=== PATIENT | female | born 1960 | race African-American/Black ===

== ENCOUNTER 2017-03-04 21:05 | Inpatient (IN) | payer OTHER ==
[~2017-03-04] VITALS: Ht 162.6 cm; Wt 56.2 kg
[2017-03-04] MEDS ORDERED: LEVOFLOXACIN 750MG/D5W (PMX) 150 ML IVPB STA (23:06)
[2017-03-04] MEDS ORDERED: SODIUM CHLORIDE 0.9% 1L BAG IV* STA (23:06)
[2017-03-04] MEDS ORDERED: FURO40TA4 PO (23:32)
[2017-03-04] MEDS ORDERED: HYDR-902 PO (23:32)
[2017-03-04] MEDS ORDERED: FAMO20TA18 PO (23:32)
[2017-03-04] MEDS ORDERED: RIVA20TA PO (23:32)
[2017-03-04] MEDS ORDERED: MAGN400T27 PO (23:32)
[2017-03-04] MEDS ORDERED: ONDA4TAB95 PO (23:32)
[2017-03-04] MEDS ORDERED: SODI15OR8 PO (23:32)
[2017-03-04] MEDS ORDERED: DOCU-159 PO (23:32)
[2017-03-04] MEDS ORDERED: HYD25 PO (23:32)
[2017-03-04] MEDS ORDERED: MEGE400O PO (23:32)
[2017-03-04] MEDS ORDERED: DRON2.5C PO (23:32)
[2017-03-04] MEDS ORDERED: SENN-53 PO (23:32)
[2017-03-05 00:11] LABS: ADD UMIC YES; UR BLOOD (Dip) 3+ (NEGATIVE); UR CLARITY CLEAR (CLEAR); UR COLOR BROWN (YELLOW); UR GLUCOSE (Dip) NEGATIVE (NEGATIVE); UR KETONES (Dip) 15 (NEGATIVE); UR LEUKOCYTE ESTERASE (Dip) 3+ (NEGATIVE); UR NITRITE (Dip) NEGATIVE (NEGATIVE); UR TOTAL PROTEIN (Dip) 4+ (NEGATIVE); UR UROBILINOGEN (Dip) 0.2 E.U./dL (0.1-1.0)
[2017-03-05 00:14] LABS: UR BILIRUBIN (Dip) NEGATIVE (NEGATIVE)
[2017-03-05 00:24] LABS: ADD SCAN DIFF NO
[2017-03-05 00:27] LABS: UR BACTERIA MANY; UR MUCUS MODERATE; UR SQUAMOUS EPITHELIAL CELL MODERATE; URINE RBCS >50 /HPF (0)
[2017-03-05 00:33] LABS: ABNORMAL IP MESSAGE 1; BASOPHILS % 0.2 % (0.0-2.0); EOSINOPHILS # 0.1 10^3/ul (0.0-0.5); HEMATOCRIT 32.8 % (37.0-47.0); HEMOGLOBIN 10.5 g/dl (12.0-16.0); LYMPHOCYTES # 0.3 10^3/ul (0.8-2.9); LYMPHOCYTES % 5.6 % (15.0-51.0); MEAN CORPUSCULAR HEMOGLOBIN 26.9 pg (29.0-33.0); MEAN CORPUSCULAR VOLUME 84.1 fl (82.0-101.0); MEAN PLATELET VOLUME 9.3 fl (7.4-10.4); MONOCYTE # 0.2 10^3/ul (0.3-0.9); MONOCYTES % 3.7 % (0.0-11.0); NEUTROPHIL # 5.2 10^3/ul (1.6-7.5); NEUTROPHILS % 88.7 % (39.0-77.0); PLATELET COUNT 307 10^3/UL (140-415); RED CELL DISTRIBUTION WIDTH 14.2 % (11.5-14.5); WHITE BLOOD COUNT 5.9 10^3/ul (4.8-10.8)
[2017-03-05 00:48] LABS: INR 0.91; PROTIME 12.2 Sec (12.2-14.2)
[2017-03-05 00:49] LABS: PARTIAL THROMBOPLASTIN TIME 35.4 Sec (25.0-35.0)
[2017-03-05 00:55] LABS: ALANINE AMINOTRANSFERASE 27 IU/L (13-69); ALBUMIN 4.4 g/dl (3.3-4.9); ALBUMIN/GLOBULIN RATIO 1.25; ALKALINE PHOSPHATASE 86 IU/L (42-121); ANION GAP 16 (8-16); ASPARTATE AMINO TRANSFERASE 22 IU/L (15-46); BILIRUBIN,INDIRECT 0.1 mg/dl (0-1.1); BILIRUBIN,TOTAL 0.1 mg/dl (0.2-1.3); BLOOD UREA NITROGEN 29 mg/dl (7-20); CALCIUM 9.7 mg/dl (8.4-10.2); CARBON DIOXIDE 23 mmol/L (21-31); CHLORIDE 98 mmol/L (97-110); CREATININE 1.24 mg/dl (0.44-1.00); GLUCOSE 106 mg/dl (70-220); POTASSIUM 3.7 mmol/L (3.5-5.1); SODIUM 133 mmol/L (135-144); TOTAL PROTEIN 7.9 g/dl (6.1-8.1)
[2017-03-05 01:58] LABS: TROPONIN-I < 0.012 ng/ml (0.00-0.12)
--- NOTE | 2017-03-05 03:04 | RADRPT ---
PROCEDURE: XR Chest. CLINICAL INDICATION: Sepsis. TECHNIQUE: Single frontal chest x-ray. COMPARISON: None. FINDINGS: The cardiomediastinal silhouette is unremarkable. There is no congestive heart failure.. No focal i nfiltrate is seen. There is no pleural effusion. There is no pneumothorax. The osseous structures are unremarkable. IMPRESSION: 1. No active disease. RPTAT: HMVK .Kris Rivas MD, Date Time Electronically viewed and signed by .Kris Rivas MD, on 03/05/2017 03:03 .K/
[2017-03-05 04:00] VITALS: TEMP 98.2
[2017-03-05] MEDS ORDERED: ACETAMINOPHEN 325 MG TAB PO PRN (04:00)
[2017-03-05] MEDS ORDERED: ONDANSETRON 4 MG INJ IV PRN ×2 (04:00→06:30)
[2017-03-05 04:41] VITALS: BP 97/58; RESP 20
--- NOTE | 2017-03-05 06:07 | ERA ---
ER Documentation Chief Complaint Date/Time DATE: 03/05/17 TIME: 06:03 Chief Complaint bilateral flank pain , hypotension- pt taking chemo- ca of kidney HPI 56-year-old female with a history of cervical cancer with bilateral ureteral obstruction requiring bilateral nephrostomy tubes presenting to the ER with right flank pain and hypotension at her care facility. She states she has noticed a foul odor to her urine out of her right nephrostomy. She denies any fevers or chills. She has chronic abdominal pain that is unchanged. Per her caregiver, she was hypotensive with systolic in the 60s prior to arrival. She denies any vaginal bleeding. She has no other acute symptoms. ROS All systems reviewed and are negative except as per history of present illness. Medications Home Meds Reported Medications Ondansetron Hcl* (Ondansetron Hcl*) 4 Mg Tablet, 4 MG PO Q8 for NAUSEA AND/OR VOMITING, TAB 03/04/17 Dronabinol* (Dronabinol*) 2.5 Mg Capsule, 2.5 MG PO BID, CAP 03/04/17 Hydrocodone/Acetaminophen ([place] 10-325 Tablet) 1 Each Tablet, 1 EACH PO, TAB 03/04/17 Sodium Polystyrene Sulfonate* (Kayexalate*) 15 Gm/60 Ml Susp, 30 GM PO, ML 03/04/17 Sennosides* (Senna Lax*) 8.6 Mg Tablet, 1 TAB PO QHS for CONSTIPATION, TAB 03/04/17 Rivaroxaban* (Xarelto*) 20 Mg Tablet, 20 MG PO WITH DINNER, TAB 03/04/17 Megestrol Acetate* (Megace*) 400 Mg/10 Ml Oral.susp, 800 MG PO DAILY, ML 03/04/17 Magnesium Oxide* (Mag-Oxide*) 400 Mg Tablet, 400 MG PO TID, TAB 03/04/17 Hydrochlorothiazide* (Hydrochlorothiazide*) 25 Mg Tab, 25 MG PO BID, #60 TAB 03/04/17 Furosemide* (Furosemide*) 40 Mg Tablet, 40 MG PO BID, TAB 03/04/17 Famotidine* (Famotidine*) 20 Mg Tablet, 20 MG PO BID, #60 TAB 03/04/17 Docusate Sodium* (Docusate Sodium*) 100 Mg Capsule, 100 MG PO BID, #60 CAP 03/04/17 Allergies Allergies: Coded Allergies: No Known Allergy (Unverified , 03/04/17) PMhx/Soc History of Surgery: Yes (nephrostomy placed 2015) Anesthesia Reaction: No Hx Neurological Disorder: Yes (general weakness) Hx Respiratory Disorders: No Hx Cardiac Disorders: Yes (hypotension) Hx Psychiatric Problems: No Hx Miscellaneous Medical Probl: Yes (received chemo (Jun-Oct) then was in remission and then it returned) Hx Alcohol Use: Yes (former drinker and was a little amount) Hx Substance Use: Yes (cocaine; many years ago) Hx Tobacco Use: Yes Smoking Status: Former smoker FmHx Family History: No diabetes Physical Exam Vitals Vital Signs Date Time Temp Pulse Resp B/P Pulse Ox O2 Delivery O2 Flow Rate FiO2 03/05/17 02:00 98.0 117 20 104/77 98 Room Air 03/05/17 00:00 98.0 124 20 102/77 100 03/04/17 23:00 98.5 115 20 119/91 97 Room Air 03/04/17 21:16 98.4 128 20 91/66 100 Physical Exam Const: Chronically ill-appearing, cachectic, no distress, nontoxic Head: Atraumatic Eyes: Normal Conjunctiva ENT: Normal External Ears, Nose and Mouth. Neck: Full range of motion. No JVD. No meningismus. Resp: Clear to auscultation bilaterally Cardio: Tachycardic with regular rhythm, no murmurs Abd: Soft, non tender, non distended. No palpable masses per normal bowel sounds Skin: No petechiae or rashes Back: Right CVA tenderness with nephrostomy tube in place draining cloudy urine. Left CVA nontender Ext: No cyanosis, or edema Neur: Awake and alert Psych: Normal Mood and Affect Result Diagram: 03/04/17 2350 03/04/17 2350 Results 24 hrs Laboratory Tests Test 03/04/17 23:40 03/04/17 23:50 Urine Color BROWN Urine Clarity CLEAR Urine pH 6.0 Urine Specific [place] 1.025 Urine Ketones 15 Urine Nitrite NEGATIVE Urine Bilirubin NEGATIVE Urine Urobilinogen 0.2 E.U./dL Urine Leukocyte Esterase 3+ Urine Microscopic RBC >50/HPF Urine Microscopic WBC >200/HPF Urine Squamous Epithelial Cells MODERATE Urine Bacteria MANY Urine Mucus MODERATE Urine Hemoglobin 3+ Urine Glucose NEGATIVE% Urine Total Protein 4+ White Blood Count 5.910^3/ul Red Blood Count 3.9010^6/ul Hemoglobin 10.5g/dl Hematocrit 32.8% Mean Corpuscular Volume 84.1fl Mean Corpuscular Hemoglobin 26.9pg Mean Corpuscular Hemoglobin Concent 32.0g/dl Red Cell Distribution Width 14.2% Platelet Count 86978^3/UL Mean Platelet Volume 9.3fl Neutrophils % 88.7% Lymphocytes % 5.6% Monocytes % 3.7% Eosinophils % 1.0% Basophils % 0.2% Nucleated Red Blood Cells % 0.0/100WBC Neutrophils # 5.210^3/ul Lymphocytes # 0.310^3/ul Monocytes # 0.210^3/ul Eosinophils # 0.110^3/ul Basophils # 0.010^3/ul Nucleated Red Blood Cells # 0.010^3/ul Prothrombin Time 12.2Sec Prothrombin Time Ratio 1.0 INR International Normalized Ratio 0.91 Activated Partial Thromboplast Time 35.4Sec Sodium Level 133mmol/L Potassium Level 3.7mmol/L Chloride Level 98mmol/L Carbon Dioxide Level 23mmol/L Anion Gap 16 Blood Urea Nitrogen 29mg/dl Creatinine 1.24mg/dl Glucose Level 106mg/dl Lactic Acid Level 1.6mmol/L Calcium Level 9.7mg/dl Total Bilirubin 0.1mg/dl Direct Bilirubin 0.00mg/dl Indirect Bilirubin 0.1mg/dl Aspartate Amino Transf (AST/SGOT) 22IU/L Alanine Aminotransferase (ALT/SGPT) 27IU/L Alkaline Phosphatase 86IU/L Troponin I < 0.012ng/ml Total Protein 7.9g/dl Albumin 4.4g/dl Globulin 3.50g/dl Albumin/Globulin Ratio 1.25 Current Medications Medications (Trade) Dose Ordered Sig/Eulalio Route PRN Reason Start Time Stop Time Status Last Admin Dose Admin Sodium Chloride 1670 ml 1,670 ml BOLUS OVER 2 HOURS STAT IV* 03/04/17 23:06 03/04/17 23:09 DC 03/04/17 23:53 Levofloxacin/ Dextrose (Levaquin 750 Mg/ D5W 150 ml (Pmx)) 150 ml @ 100 mls/hr ONCE STAT IVPB 03/04/17 23:06 03/05/17 00:35 DC 03/04/17 23:49 Procedures/MDM EKG: Rate/Rhythm: Sinus tachycardia at 127 beats per QRS, ST, T-waves: No changes consistent w/ acute ischemia Impression: No evidence of ischemia or arrhythmia Labs: CBC shows mild anemia, BMP shows mild hyponatremia With elevated BUN and creatinine Urinalysis from right nephrostomy shows evidence of infection Lactate within normal limits Chest x-ray shows no acute abnormalities MDM: Patient is presenting with symptoms of pyelonephritis associated with her right nephrostomy tube. She is tachycardic and borderline hypotensive. 30 cc/kg of IV fluids were given with improvement of her vital signs. Her lactate was within normal limits. Broad-spectrum antibiotics were started. I suspect she will need exchange of her right nephrostomy tube given her acute infection. Cultures are pending. Patient will be admitted to the medicine service for further workup and management. Critical Care Time: 35 minutes Treatments/Evaluations: Close monitoring and treatment of unstable vital signs, cardiorespiratory, and neurologic status, while maintaining tight balance of fluid, respiratory, and cardiac interventions. This time includes discussing the case with the patient and the patients family. This time does not include all procedures stated elsewhere in this record. This time also includes reviewing old records, labs and radiological studies. This time includes examining and re-examining the patient. Additionally, this time also includes arranging care with admitting and consulting physicians. Accepting Care Team: Current data and ongoing care discussed. Time: Time of admission Primary Provider: Wai Consulting: none Outstanding Data: Cultures Departure Diagnosis: Primary Impression: Pyelonephritis Additional Impression: Sepsis Qualified Code: A41.9 - Sepsis, due to unspecified organism Condition: NAVI Leo MD Mar 05, 2017 06:07
[2017-03-05 06:17] VITALS: Ht 162.6 cm; Wt 56.2 kg
[2017-03-05] MEDS: SOD CHLORIDE 0.9% 1,000 ML IV SCH ×2 (06:27→16:50)
[2017-03-05] MEDS ORDERED: morphine 2 MG INJ IV PRN (06:30)
[2017-03-05] MEDS ORDERED: NACL 0.9% 3 ML SYG IV SCH (06:30)
--- NOTE | 2017-03-05 06:49 | HP ---
Date/Time of Note Date/Time of Note DATE: 03/05/17 TIME: 06:26 Assessment/Plan VTE Prophylaxis VTE Prophylaxis Intervention: SCD's Lines/Catheters IV [facility] Type (from [facility]): Peripheral IV Urinary Cath still in place: No Assessment/Plan Chief Complaint/Hosp Course This is a 56-year-old female being admitted to the [facility] floor for: #1 sepsis: Tachycardia and elevated respiratory rate along with urinary tract infection. Patient is currently afebrile. She was started on Levaquin in the ED will continue IV Levaquin at this time. Will await urine cultures and sensitivities and adjust antibiotics accordingly. Will provide IV fluid hydration and monitor for any recurrent hypotension. Lactate is within normal values. Recheck CBC and BMP. #2 right flank pain: Possible pyelonephritis, patient also has foul order urine leaking from around the nephrostomy site. On IV Levaquin at this time. Await urine culture sensitivities. Will get a renal ultrasound, and likely will consult IR for nephrostomy tube replacement. She is currently on Xarelto as well will discuss with IR whether this needs to be held prior to procedure. #3 hypertension: We will hold home hydrochlorothiazide at this time secondary to patient's low blood pressure #4 cervical cancer: Being followed by heme/onc as an outpatient. Patient had her most recent chemotherapy last week. We will continue home medications for poor appetite and pain. #5 Questionable clotting disorder: Patient at this time does not recall any clotting issues that she may have. She is on Xarelto. Will continue the current medication and follow-up with any family members or obtain records regarding this. #6 DVT and GI prophylaxis: scds, Patient currently on Xarelto, Protonix Further treatment strategy will be implemented as per the clinical course Problems: HPI/ROS Admit Date/Time Admit Date/Time Mar 05, 2017 at 03:37 Hx of Present Illness Chief complaint: Right flank pain, hypertension 56-year-old female with a history of cervical cancer with bilateral ureteral obstruction requiring bilateral nephrostomy tubes presenting to the ER with right flank pain and hypotension at her care facility. She states she has noticed a foul odor to her urine out of her right nephrostomy. She denies any fevers or chills. She has chronic abdominal pain that is unchanged. Per her caregiver, she was hypotensive with systolic in the 60s prior to arrival. She denies any vaginal bleeding. She has no other acute symptoms. In the emergency department patient was given a fluid challenge and subsequently her blood pressure responded and currently is in within normal values. Allergies: NKDA Medications: See Nov Const: As per HPI Eyes : No pain discharge or redness or change in visual acuity ENT: No pain, sore throat, congestion, congestion, dysphagia or discharge Respiratory: No shortness of breath, cough, sputum, wheezing, or pleuritic pain Cardiovascular: No chest pain, palpitation, PND, or edema GI : As per HPI Genitourinary: As per HPI Musculoskeletal: No joint pain, back pain, neck pain, restricted range of motion in neck or joints Skin: No rash, bruising or hives Neuro: No headache, dizziness, syncope, seizure, focal weakness Endocrine: No polyuria, polydipsia, temperature intolerance Psych: No hallucination, depression, anxiety or suicidal ideation PMH/Family/Social Past Medical History Cervical cancer status post chemotherapy last , hypertension, clotting disorder? Past Surgical History Bilateral nephrostomy tubes Family History Significant Family History: cancer (Mom pancreatic cancer) Social History Patient reports that she has a previous history of cigarette use and alcohol use as well as cocaine use however she has not used any drugs within the past year Smoking Status: Former smoker Exam/Review of Systems Vital Signs Vitals Vital Signs Date Time Temp Pulse Resp B/P Pulse Ox O2 Delivery O2 Flow Rate FiO2 03/05/17 04:41 98.0 97 20 97/58 100 03/05/17 04:00 Room Air Intake and Output 03/04/17 03/04/17 03/05/17 15:00 23:00 07:00 Intake Total 150 ml Output Total 200 ml Balance -50 ml Exam Exam General: This is a pleasant 52-year-old female frail-appearing in no acute distress HEENT: Atraumatic, normocephalic. The pupils are equal, round and reactive. Extraocular motor are intact, poor dentition Neck: Supple with full range of motion. No rigidity or meningismus Chest: Nontender Lungs: Clear to auscultation bilaterally no crackles rales or wheezing Heart: Normal S1-S2, Regular rhythm and rate. No apparent appreciable murmur Abdomen: Soft, mild tenderness to palpation in the suprapubic area (chronic), left nephrostomy tube in place and intact no leakage apparent, right nephrostomy tube in place however there is visible fluid leakage possible signs of underlying infection, right CVA tenderness to palpation Extremities: Normal to inspection, no edema no cyanosis Neurologic: Normal mental status, speech normal, cranial nerves II through XII are intact, motor and sensory are intact, no focal weakness Additional Comments PROCEDURE: XR Chest. CLINICAL INDICATION: Sepsis. TECHNIQUE: Single frontal chest x-ray. COMPARISON: None. FINDINGS: The cardiomediastinal silhouette is unremarkable. There is no congestive heart failure.. No focal infiltrate is seen. There is no pleural effusion. There is no pneumothorax. The osseous structures are unremarkable. IMPRESSION: 1. No active disease. RPTAT: HMVK .Kris Rivas MD, Date Time Electronically viewed and signed by .Kris Rivas MD, on 03/05/2017 03:03 EKG: Rate/Rhythm: Sinus tachycardia at 127 beats per QRS, ST, T-waves: No changes consistent w/ acute ischemia As per ED physician documentation Labs Result Diagram: 03/04/17 23503/04/17 235 NORM REINA Mar 05, 2017 06:39
[2017-03-05] MEDS ORDERED: PANTOPRAZOLE 40 MG INJ IV SCH (07:30)
[2017-03-05 08:04] VITALS: BP 97/60; RESP 20
[2017-03-05] MEDS: MAGNESIUM OXIDE 400 MG TAB PO SCH ×3 (08:44→20:41)
[2017-03-05] MEDS: DOCUSATE SODIUM 100 MG CAP PO SCH ×2 (08:46→20:40)
[2017-03-05] MEDS: DRONABINOL 2.5 MG CAP PO SCH ×2 (08:47→20:43)
[2017-03-05] MEDS: MEGESTROL (40 MG/ML) 10ML CUP PO SCH (08:47)
--- NOTE | 2017-03-05 09:49 | PN ---
Date/Time of Note Date/Time of Note DATE: 03/05/17 TIME: 09:48 Assessment/Plan VTE Prophylaxis VTE Prophylaxis Intervention: other (full ATC) Lines/Catheters IV Catheter Type (from Nrsg): Peripheral IV Urinary Cath still in place: No Assessment/Plan Assessment/Plan 56 yo F with pmhx cervical ca cb bl hydro warranting nephrostomy tube placement admitted for R flank pain, hypotension concerning for pyelonephritis and possible nephrostomy tube leak PLAN cont levoflox pending urine culture results await renal US result. If nephrostomy tube shows leak, will talk to IR inc pain meds cont home meds Subjective 24 Hr Interval Summary Free Text/Dictation pt reports pain control not sufficient at this time Exam/Review of Systems Vital Signs Vitals Vital Signs Date Time Temp Pulse Resp B/P Pulse Ox O2 Delivery O2 Flow Rate FiO2 03/05/17 08:04 98.1 91 20 97/60 98 03/05/17 04:00 Room Air Intake and Output 03/04/17 03/04/17 03/05/17 15:00 23:00 07:00 Intake Total 150 ml Output Total 200 ml Balance -50 ml Exam nad, laying in bed no mrg lungs clear abd soft nephrostomy tubes in place no le edema Results Result Diagram: 03/04/17 2350 03/04/17 2350 Results 24 hrs Laboratory Tests Test 03/04/17 23:40 03/04/17 23:50 03/05/17 04:50 03/05/17 06:53 Urine Color BROWN Urine Clarity CLEAR Urine pH 6.0 Urine Specific [place] 1.025 Urine Ketones 15 Urine Nitrite NEGATIVE Urine Bilirubin NEGATIVE Urine Urobilinogen 0.2 E.U./dL Urine Leukocyte Esterase 3+ H Urine Microscopic RBC >50 Urine Microscopic WBC >200 Urine Squamous Epithelial Cells MODERATE Urine Bacteria MANY Urine Mucus MODERATE Urine Hemoglobin 3+ H Urine Glucose NEGATIVE Urine Total Protein 4+ H White Blood Count 5.9 Red Blood Count 3.90 L Hemoglobin 10.5 L Hematocrit 32.8 L Mean Corpuscular Volume 84.1 Mean Corpuscular Hemoglobin 26.9 L Mean Corpuscular Hemoglobin Concent 32.0 Red Cell Distribution Width 14.2 Platelet Count 307 Mean Platelet Volume 9.3 Neutrophils % 88.7 H Lymphocytes % 5.6 L Monocytes % 3.7 Eosinophils % 1.0 Basophils % 0.2 Nucleated Red Blood Cells % 0.0 Neutrophils # 5.2 Lymphocytes # 0.3 L Monocytes # 0.2 L Eosinophils # 0.1 Basophils # 0.0 Nucleated Red Blood Cells # 0.0 Prothrombin Time 12.2 Prothrombin Time Ratio 1.0 INR International Normalized Ratio 0.91 Activated Partial Thromboplast Time 35.4 H Sodium Level 133 L Potassium Level 3.7 Chloride Level 98 Carbon Dioxide Level 23 Anion Gap 16 Blood Urea Nitrogen 29 H Creatinine 1.24 H Glucose Level 106 Lactic Acid Level 1.6 0.9 1.0 Calcium Level 9.7 Total Bilirubin 0.1 L Direct Bilirubin 0.00 Indirect Bilirubin 0.1 Aspartate Amino Transf (AST/SGOT) 22 Alanine Aminotransferase (ALT/SGPT) 27 Alkaline Phosphatase 86 Troponin I < 0.012 Total Protein 7.9 Albumin 4.4 Globulin 3.50 H Albumin/Globulin Ratio 1.25 Medications Medications Current Medications Sodium Chloride (NS) 1,000 ml @ 75 mls/hr [id number] IV ; Start 03/05/17 at 06:27 Ondansetron HCl (Zofran Inj) 4 mg Q6H PRN IV NAUSEA AND/OR VOMITING; Start at 06:30 Morphine Sulfate (morphine) 2 mg Q4H PRN IV SEVERE PAIN LEVEL 7-10 Last administered on 03/05/17 08:40; Admin Dose 2 MG; Start 03/05/17 at 06:30 Pantoprazole 40 mg 40 mg DAILY@06 IV Last administered on 03/05/17 08:43; Admin Dose 40 MG; Start 03/05/17 at 07:30 Levofloxacin/ Dextrose (Levaquin 750 Mg/ D5W 150 ml (Pmx)) 150 ml @ 100 mls/hr Q24H IVPB ; Start 03/06/17 at 00:00 Docusate Sodium (Colace) 100 mg BID PO ; Start 03/05/17 at 09:00 Dronabinol (Marinol) 2.5 mg BID PO ; Start 03/05/17 at 09:00 Magnesium Oxide (Mag-Ox 400) 400 mg TID PO Last administered on 03/05/17 08:44 ; Admin Dose 400 MG; Start 03/05/17 at 09:00 Megestrol Acetate (Megace Susp) 800 mg DAILY PO ; Start 6/15/17 at 09:00 Ondansetron HCl (Zofran Tab) 4 mg Q8 PO ; Start 03/05/17 at 14:00 Senna (Senokot) 1 tab QHS PO ; Start 03/05/17 at 21:00 RADHA THOMPSON MD Mar 05, 2017 09:49
--- NOTE | 2017-03-05 12:28 | RADRPT ---
PROCEDURE: Renal US. CLINICAL INDICATION: Bilateral nephrostomy tubes with the right nephrostomy tube maintained. TECHNIQUE: Multiple sonographic images of the kidneys and urinary bladder were obtained. The imag es were reviewed on a PACS workstation. COMPARISON: No prior studies are available for comparison. FINDINGS: The right kidney measures 10.2 cm. The left kidney measures 10.2 cm. There is no renal mass. There is mild bilateral hydronephrosis. Bilateral nephrostomy tubes are visualized. There is no renal calculus. Renal parenchymal thickness is normal bilaterally. Echogenicity is normal bilaterally. The perirenal regions are normal with no fluid collection or mass. The urinary bladder is empty. IMPRESSION: 1. Mild bilateral hydronephrosis and bilateral nephrostomy tubes noted. 2. Empty urinary bladder. 3. Otherwise unremarkable study. RPTAT: QQ .Carlos Rogers MD, Date Time Electronically viewed and signed by .Carlos Rogers MD, on 03/05/2017 12:28 .R/
[2017-03-05] MEDS: morphine 4 MG/ML VIAL IV PRN ×3 (12:30→21:04)
[2017-03-05] MEDS: ONDANSETRON 4 MG TAB PO SCH ×2 (13:17→21:14)
[2017-03-05] MEDS: RIVAROXABAN 20 MG TABLET PO SCH (16:50)
[2017-03-05 20:12] VITALS: BP 119/72; RESP 18
[2017-03-05] MEDS: SENNA TAB PO SCH (20:41)
[2017-03-06] MEDS ORDERED: LEVOFLOXACIN 750MG/D5W (PMX) 150 ML IVPB SCH
[2017-03-06] MEDS: morphine 4 MG/ML VIAL IV PRN ×4 (02:49→21:21)
[2017-03-06] MEDS: SOD CHLORIDE 0.9% 1,000 ML IV SCH ×2 (04:51→18:07)
[2017-03-06 05:09] LABS: ADD SCAN DIFF NO
[2017-03-06] MEDS: LEVOFLOXACIN 750 MG TABLET PO SCH (05:22)
[2017-03-06] MEDS: ONDANSETRON 4 MG TAB PO SCH ×3 (05:22→21:17)
[2017-03-06 05:26] LABS: ABNORMAL IP MESSAGE 1; EOSINOPHILS # 0.1 10^3/ul (0.0-0.5); EOSINOPHILS % 2.5 % (0.0-7.0); HEMATOCRIT 25.3 % (37.0-47.0); LYMPHOCYTES # 0.3 10^3/ul (0.8-2.9); LYMPHOCYTES % 7.6 % (15.0-51.0); MEAN CORPUSCULAR HEMOGLOBIN 26.9 pg (29.0-33.0); MEAN CORPUSCULAR HGB CONC 31.6 g/dl (32.0-37.0); MEAN CORPUSCULAR VOLUME 85.2 fl (82.0-101.0); MEAN PLATELET VOLUME 9.7 fl (7.4-10.4); MONOCYTE # 0.2 10^3/ul (0.3-0.9); MONOCYTES % 5.9 % (0.0-11.0); NEUTROPHIL # 3.4 10^3/ul (1.6-7.5); NEUTROPHILS % 83.3 % (39.0-77.0); PLATELET COUNT 258 10^3/UL (140-415); RED BLOOD COUNT 2.97 10^6/ul (4.20-5.40); RED CELL DISTRIBUTION WIDTH 14.4 % (11.5-14.5); WHITE BLOOD COUNT 4.1 10^3/ul (4.8-10.8)
[2017-03-06 05:50] LABS: CALCIUM 9.2 mg/dl (8.4-10.2); CREATININE 1.03 mg/dl (0.44-1.00); MAGNESIUM 1.9 mg/dl (1.7-2.5)
[2017-03-06 06:58] VITALS: BP 93/56; RESP 20
[2017-03-06] MEDS: DOCUSATE SODIUM 100 MG CAP PO SCH ×2 (08:42→21:18)
[2017-03-06] MEDS: MEGESTROL (40 MG/ML) 10ML CUP PO SCH (08:42)
[2017-03-06] MEDS: MAGNESIUM OXIDE 400 MG TAB PO SCH ×3 (08:42→21:17)
[2017-03-06] MEDS: DRONABINOL 2.5 MG CAP PO SCH ×2 (08:42→21:17)
--- NOTE | 2017-03-06 13:07 | PN ---
Date/Time of Note Date/Time of Note DATE: 03/06/17 TIME: 13:06 Assessment/Plan VTE Prophylaxis VTE Prophylaxis Intervention: SCD's Lines/Catheters IV Catheter Type (from Nrsg): Peripheral IV Urinary Cath still in place: No Assessment/Plan Assessment/Plan 56 yo F with pmhx cervical ca cb bl hydro warranting nephrostomy tube placement admitted for R flank pain, hypotension concerning for pyelonephritis and possible nephrostomy tube leak PLAN change levoflox to PO R sided nephrostomy tube xch ordered cont home meds dispo once tube exchange complete Subjective 24 Hr Interval Summary Free Text/Dictation Pt and family report pt is feeling much better, appetite has returned. Still with pain around R nephrostomy tube site Exam/Review of Systems Vital Signs Vitals Vital Signs Date Time Temp Pulse Resp B/P Pulse Ox O2 Delivery O2 Flow Rate FiO2 03/06/17 06:58 98.6 88 20 93/56 97 03/05/17 04:00 Room Air Intake and Output 03/05/17 03/05/17 03/06/17 15:00 23:00 07:00 Intake Total 550 ml 1480 ml Output Total 450 ml 700 ml Balance 100 ml 780 ml Exam nad, sitting up in bed rrr no mrg lungs clear abd soft R nephrostomy tube with small amout of serous leakage urine culture results reviewe Results Result Diagram: 03/06/17 0426 03/06/17 0440 Results 24 hrs Laboratory Tests Test 03/06/17 04:26 03/06/17 04:40 White Blood Count 4.1 #L Red Blood Count 2.97 #L Hemoglobin 8.0 #L Hematocrit 25.3 #L Mean Corpuscular Volume 85.2 Mean Corpuscular Hemoglobin 26.9 L Mean Corpuscular Hemoglobin Concent 31.6 L Red Cell Distribution Width 14.4 Platelet Count 258 Mean Platelet Volume 9.7 Neutrophils % 83.3 H Lymphocytes % 7.6 L Monocytes % 5.9 Eosinophils % 2.5 Basophils % 0.0 Nucleated Red Blood Cells % 0.0 Neutrophils # 3.4 Lymphocytes # 0.3 L Monocytes # 0.2 L Eosinophils # 0.1 Basophils # 0.0 Nucleated Red Blood Cells # 0.0 Sodium Level 137 Potassium Level 4.0 Chloride Level 108 # Carbon Dioxide Level 23 Anion Gap 10 # Blood Urea Nitrogen 14 # Creatinine 1.03 H Glucose Level 86 Calcium Level 9.2 Magnesium Level 1.9 Medications Medications Current Medications Sodium Chloride (NS) 1,000 ml @ 75 mls/hr [id number] IV Last administered on 03/06 04:51; Admin Dose 75 MLS/HR; Start 03/05/17 at 06:27 Ondansetron HCl (Zofran Inj) 4 mg Q6H PRN IV NAUSEA AND/OR VOMITING; Start at 06:30 Docusate Sodium (Colace) 100 mg BID PO Last administered on 03/06/17 08:42; Admin Dose 100 MG; Start 03/05/17 at 09:00 Dronabinol (Marinol) 2.5 mg BID PO Last administered on 03/06/17 08:42; Admin Dose 2.5 MG; Start 03/05/17 at 09:00 Magnesium Oxide (Mag-Ox 400) 400 mg TID PO Last administered on 03/06/17 08:42 ; Admin Dose 400 MG; Start 03/05/17 at 09:00 Megestrol Acetate (Megace Susp) 800 mg DAILY PO Last administered on 03/06/17 08:42; Admin Dose 800 MG; Start 03/05/17 at 09:00 Ondansetron HCl (Zofran Tab) 4 mg Q8 PO Last administered on 03/06/17 05:22; Admin Dose 4 MG; Start 03/05/17 at 14:00 Senna (Senokot) 1 tab QHS PO Last administered on 03/05/17 20:41; Admin Dose 1 TAB; Start 03/05/17 at 21:00 Levofloxacin (Levaquin) 750 mg DAILY@06 PO Last administered on 03/06/17 05:22 ; Admin Dose 750 MG; Start 03/06/17 at 06:00 Morphine Sulfate (morphine) 3 mg Q4H PRN IV SEVERE PAIN LEVEL 7-10 Last administered on 03/06/17 09:28; Admin Dose 3 MG; Start 03/05/17 at 10:30 RADHA THOMPSON MD Mar 06, 2017 13:07
[2017-03-06] MEDS: RIVAROXABAN 20 MG TABLET PO SCH (17:20)
[2017-03-06 19:40] VITALS: BP 110/70; RESP 20
[2017-03-06] MEDS: SENNA TAB PO SCH (21:17)
[2017-03-07] MEDS: morphine 4 MG/ML VIAL IV PRN ×5 (01:29→21:31)
[2017-03-07] MEDS ORDERED: LEVOFLOXACIN 750 MG TABLET PO SCH (06:00)
[2017-03-07] MEDS: ONDANSETRON 4 MG TAB PO SCH ×3 (06:00→17:48)
[2017-03-07 08:29] LABS: ADD SCAN DIFF NO
[2017-03-07 08:37] LABS: ABNORMAL IP MESSAGE 1; BASOPHILS % 0.3 % (0.0-2.0); EOSINOPHILS # 0.1 10^3/ul (0.0-0.5); EOSINOPHILS % 1.8 % (0.0-7.0); HEMATOCRIT 24.4 % (37.0-47.0); HEMOGLOBIN 7.6 g/dl (12.0-16.0); LYMPHOCYTES # 0.5 10^3/ul (0.8-2.9); LYMPHOCYTES % 12.8 % (15.0-51.0); MEAN CORPUSCULAR HEMOGLOBIN 26.5 pg (29.0-33.0); MEAN CORPUSCULAR HGB CONC 31.1 g/dl (32.0-37.0); MEAN PLATELET VOLUME 9.6 fl (7.4-10.4); MONOCYTE # 0.3 10^3/ul (0.3-0.9); MONOCYTES % 7.6 % (0.0-11.0); NEUTROPHIL # 3.1 10^3/ul (1.6-7.5); NEUTROPHILS % 76.7 % (39.0-77.0); PLATELET COUNT 268 10^3/UL (140-415); RED BLOOD COUNT 2.87 10^6/ul (4.20-5.40); RED CELL DISTRIBUTION WIDTH 14.7 % (11.5-14.5)
[2017-03-07] MEDS: DOCUSATE SODIUM 100 MG CAP PO SCH ×2 (08:48→20:07)
[2017-03-07] MEDS: MAGNESIUM OXIDE 400 MG TAB PO SCH ×3 (08:48→20:07)
[2017-03-07] MEDS: DRONABINOL 2.5 MG CAP PO SCH ×2 (08:48→20:07)
[2017-03-07] MEDS: LEVOFLOXACIN 750 MG TABLET PO SCH (08:48)
[2017-03-07] MEDS: MEGESTROL (40 MG/ML) 10ML CUP PO SCH (08:51)
[2017-03-07 09:41] VITALS: BP 102/59; RESP 20
[2017-03-07] MEDS: SOD CHLORIDE 0.9% 1,000 ML IV SCH ×2 (10:30→23:42)
--- NOTE | 2017-03-07 14:04 | PN ---
Date/Time of Note Date/Time of Note DATE: 03/07/17 TIME: 14:03 Assessment/Plan VTE Prophylaxis VTE Prophylaxis Intervention: SCD's Lines/Catheters IV Catheter Type (from Nrsg): Peripheral IV Urinary Cath still in place: No Assessment/Plan Assessment/Plan 56 yo F with pmhx cervical ca cb bl hydro warranting nephrostomy tube placement admitted for R flank pain, hypotension concerning for pyelonephritis and possible nephrostomy tube leak PLAN change levoflox to PO given MDR urine culture, ID cs for abx guidance R sided nephrostomy tube xch ordered. Per IR will not happen until 03.09 cont home meds dispo once tube exchange complete Subjective 24 Hr Interval Summary Free Text/Dictation Pt still with some pain around R sided nephrostomy tube site. Eating well Exam/Review of Systems Vital Signs Vitals Vital Signs Date Time Temp Pulse Resp B/P Pulse Ox O2 Delivery O2 Flow Rate FiO2 03/07/17 09:41 98.1 67 20 102/59 92 03/05/17 04:00 Room Air Intake and Output 03/06/17 03/06/17 03/07/17 15:00 23:00 07:00 Intake Total 2000 ml 480 ml Output Total 760 ml 700 ml Balance 1240 ml -220 ml Exam nad laying in bed no mrg lungs clear abd soft no le edema urine culture result noted Results Result Diagram: 03/07/17 0806 03/06/17 0440 Results 24 hrs Laboratory Tests Test 03/07/17 08:06 White Blood Count 4.0 L Red Blood Count 2.87 L Hemoglobin 7.6 L Hematocrit 24.4 L Mean Corpuscular Volume 85.0 Mean Corpuscular Hemoglobin 26.5 L Mean Corpuscular Hemoglobin Concent 31.1 L Red Cell Distribution Width 14.7 H Platelet Count 268 Mean Platelet Volume 9.6 Neutrophils % 76.7 Lymphocytes % 12.8 L Monocytes % 7.6 Eosinophils % 1.8 Basophils % 0.3 Nucleated Red Blood Cells % 0.0 Neutrophils # 3.1 Lymphocytes # 0.5 L Monocytes # 0.3 Eosinophils # 0.1 Basophils # 0.0 Nucleated Red Blood Cells # 0.0 Medications Medications Current Medications Sodium Chloride (NS) 1,000 ml @ 75 mls/hr [id number] IV Last administered on 03/07t 10:30; Admin Dose 75 MLS/HR; Start 03/05/17 at 06:27 Ondansetron HCl (Zofran Inj) 4 mg Q6H PRN IV NAUSEA AND/OR VOMITING; Start at 06:30 Docusate Sodium (Colace) 100 mg BID PO Last administered on 03/07/17 08:48; Admin Dose 100 MG; Start 03/05/17 at 09:00 Dronabinol (Marinol) 2.5 mg BID PO Last administered on 03/07/17 08:48; Admin Dose 2.5 MG; Start 03/05/17 at 09:00 Magnesium Oxide (Mag-Ox 400) 400 mg TID PO Last administered on 03/07/17 12:44 ; Admin Dose 400 MG; Start 03/05/17 at 09:00 Megestrol Acetate (Megace Susp) 800 mg DAILY PO Last administered on 03/07/17 08:51; Admin Dose 800 MG; Start 03/05/17 at 09:00 Ondansetron HCl (Zofran Tab) 4 mg Q8 PO Last administered on 03/07/17 08:48; Admin Dose 4 MG; Start 03/05/17 at 14:00 Senna (Senokot) 1 tab QHS PO Last administered on 03/06/17 21:17; Admin Dose 1 TAB; Start 03/05/17 at 21:00 Levofloxacin (Levaquin) 750 mg DAILY@06 PO Last administered on 03/07/17 08:48 ; Admin Dose 750 MG; Start 03/06/17 at 06:00 Morphine Sulfate (morphine) 3 mg Q4H PRN IV SEVERE PAIN LEVEL 7-10 Last administered on 03/07/17 09:22; Admin Dose 3 MG; Start 03/05/17 at 10:30 RADHA THOMPSON MD Mar 07, 2017 14:04
[2017-03-07] MEDS: RIVAROXABAN 20 MG TABLET PO SCH (17:48)
[2017-03-07] MEDS: SENNA TAB PO SCH (20:07)
[2017-03-07 21:31] VITALS: BP 113/69; RESP 20
[2017-03-08] MEDS: morphine 4 MG/ML VIAL IV PRN ×5 (01:41→21:28)
[2017-03-08] MEDS: ONDANSETRON 4 MG TAB PO SCH ×3 (05:19→21:29)
[2017-03-08] MEDS: LEVOFLOXACIN 750 MG TABLET PO SCH (05:20)
[2017-03-08 08:33] VITALS: BP 92/58; RESP 16
[2017-03-08] MEDS: DOCUSATE SODIUM 100 MG CAP PO SCH ×2 (08:33→20:01)
[2017-03-08] MEDS: DRONABINOL 2.5 MG CAP PO SCH ×2 (08:33→20:01)
[2017-03-08] MEDS: MEGESTROL (40 MG/ML) 10ML CUP PO SCH (08:33)
[2017-03-08] MEDS: MAGNESIUM OXIDE 400 MG TAB PO SCH ×3 (08:33→20:01)
--- NOTE | 2017-03-08 10:55 | PN ---
Date/Time of Note Date/Time of Note DATE: 03/08/17 TIME: 10:54 Assessment/Plan VTE Prophylaxis VTE Prophylaxis Intervention: SCD's Lines/Catheters IV Catheter Type (from Nrsg): Peripheral IV Urinary Cath still in place: No Assessment/Plan Assessment/Plan Assessment/Plan 56 yo F with pmhx cervical ca cb bl hydro warranting nephrostomy tube placement admitted for R flank pain, hypotension concerning for pyelonephritis and possible nephrostomy tube leak PLAN changed levoflox to PO given MDR urine culture, ID cs for abx guidance R sided nephrostomy tube xch ordered. Per IR will not happen until 03.09 cont home meds-->inc morphine dose dispo once tube exchange complete Subjective 24 Hr Interval Summary Free Text/Dictation pt with continued pain around R nephrostomy tube site. requesting inc in pain meds Exam/Review of Systems Vital Signs Vitals Vital Signs Date Time Temp Pulse Resp B/P Pulse Ox O2 Delivery O2 Flow Rate FiO2 03/08/17 08:33 98.2 87 16 92/58 96 03/05/17 04:00 Room Air Intake and Output 03/07/17 03/07/17 03/08/17 15:00 23:00 07:00 Intake Total 1000 ml 1525 ml 1165 ml Output Total 500 ml 850 ml Balance 500 ml 1525 ml 315 ml Exam nad no mrg lungs clear no rashes no edema Results Result Diagram: 03/07/17 0806 03/06/17 0440 Medications Medications Current Medications Sodium Chloride (NS) 1,000 ml @ 75 mls/hr [id number] IV Last administered on 03/07 23:42; Admin Dose 75 MLS/HR; Start 03/05/17 at 06:27 Ondansetron HCl (Zofran Inj) 4 mg Q6H PRN IV NAUSEA AND/OR VOMITING; Start at 06:30 Docusate Sodium (Colace) 100 mg BID PO Last administered on 03/08/17 08:33; Admin Dose 100 MG; Start 03/05/17 at 09:00 Dronabinol (Marinol) 2.5 mg BID PO Last administered on 03/08/17 08:33; Admin Dose 2.5 MG; Start 03/05/17 at 09:00 Magnesium Oxide (Mag-Ox 400) 400 mg TID PO Last administered on 03/08/17 08:33 ; Admin Dose 400 MG; Start 03/05/17 at 09:00 Megestrol Acetate (Megace Susp) 800 mg DAILY PO Last administered on 03/08/17 08:33; Admin Dose 800 MG; Start 03/05/17 at 09:00 Ondansetron HCl (Zofran Tab) 4 mg Q8 PO Last administered on 03/08/17 05:19; Admin Dose 4 MG; Start 03/05/17 at 14:00 Senna (Senokot) 1 tab QHS PO Last administered on 03/07/17 20:07; Admin Dose 1 TAB; Start 03/05/17 at 21:00 Levofloxacin (Levaquin) 750 mg DAILY@06 PO Last administered on 03/08/17 05:20 ; Admin Dose 750 MG; Start 03/06/17 at 06:00 Morphine Sulfate (morphine) 3 mg Q4H PRN IV SEVERE PAIN LEVEL 7-10 Last administered on 03/08/17 07:22; Admin Dose 3 MG; Start 03/05/17 at 10:30 RADHA THOMPSON MD Mar 08, 2017 10:55
[2017-03-08] MEDS: SOD CHLORIDE 0.9% 1,000 ML IV SCH (11:15)
[2017-03-08] MEDS: RIVAROXABAN 20 MG TABLET PO SCH (16:59)
--- NOTE | 2017-03-08 18:16 | PN ---
DATE: 03/08/2017 SUBJECTIVE: No acute changes. The patient is alert, feels good. Denies pain, discomfort. No feve rs. MICROBIOLOGY: Urine culture grew Klebsiella, enterococcus species, and E. coli. INDWELLINGS: Bilateral nephrostomies. ANTIMICROBIALS: The patient is on Levaquin. PHYSICAL EXAMINATION: GENERAL: Cachectic, middle-aged woman who is awake, in no distress. HEENT: Head atraumatic, normocephalic. Sclerae anicteric. Buccal mucosa pink. NECK: Supple. CHEST: Rise symmetrical. Breath sounds clear. HEART: S1, S2. ABDOMEN: Soft. Bowel tones present. EXTREMITIES: Without cyanosis. ASSESSMENT: 1. Polymicrobial urinary tract infection. 2. Mild bilateral hydronephrosis with placement of bilateral nephrostomies. 3. History of cervical cancer status post chemotherapy last week. 4. Hypertension. PLAN: The patient remains stable. We are going to add amoxicillin to the regimen to cover enteroco ccus. Continue her on Levaquin and anticipate treating her with current antibiotics for 2 weeks. W e will add probiotics to the regimen. Dictated By: SHANNON PHOENIX PERSONAL LINES ACCOUNT EXECUTIVE for CUCA HUNTLEY MD NI/NTS Conf#: [id number] DID#: [id number] CC: NORM REINA MD;*End*
[2017-03-08 19:39] VITALS: BP 112/72; RESP 17
[2017-03-08] MEDS: L ACIDOPHIL/B LACTIS/B LONGUM CAPSULE PO SCH (20:01)
[2017-03-08] MEDS: SENNA TAB PO SCH (20:01)
[2017-03-08] MEDS: AMOXICILLIN 500 MG CAP PO SCH (21:29)
[2017-03-09] MEDS: SOD CHLORIDE 0.9% 1,000 ML IV SCH ×2 (01:09→17:31)
[2017-03-09] MEDS: morphine 4 MG/ML VIAL IV PRN ×6 (01:24→21:37)
[2017-03-09] MEDS: ONDANSETRON 4 MG TAB PO SCH ×3 (05:27→22:55)
[2017-03-09] MEDS: LEVOFLOXACIN 750 MG TABLET PO SCH (05:27)
[2017-03-09] MEDS: AMOXICILLIN 500 MG CAP PO SCH ×3 (05:27→21:40)
--- NOTE | 2017-03-09 08:17 | CONS ---
DATE OF ADMISSION: 03/06/2017 DATE OF CONSULTATION: 03/07/2017 TYPE OF CONSULTATION: Infectious Disease. REASON FOR CONSULTATION: Antibiotic management. HISTORY OF PRESENT ILLNESS: Riya Teixeira is a 56-year-old female who complains of right flank pain and is being seen for antibiotic management. Past problems include a history of cervical cancer wit h bilateral ureteral obstruction, requiring bilateral nephrostomy tubes. The patient presents to [facility] emergency room on ____ with right flank pain and hypotension from her care facility. She also has a foul odor to her urine out of her right nephrostomy. She has chronic abdominal pain, unchanged. She was hypotensive, with a systolic blood pressure in the 60s. She denies any vaginal bleeding. She has no other acute symptoms. She was given a fluid challenge. Her blood pressure responded and she was admitted. On admission, her white count was 5.9; H and H of 10.5 and 32.8; platelet count 307,000. BUN and creatinine 29/1.24, glucose of 106. PAST MEDICAL HISTORY: Is positive for cervical cancer, as noted. HOSPITAL COURSE: She had a renal ultrasound which showed mild bilateral hydronephrosis. Bilateral nephrostomy tubes noted. Empty urinary bladder; otherwise, unremarkable study. Her chest x-ray was negative, no acute infiltrates. Catheter'd urine showed Klebsiella subspecies pneumoniae, Enteroco ccus and E. coli. The K. pneumoniae that was sensitive to cefazolin, cefotaxime. The Enterococcus was sensitive to ampicillin and the E. coli was sensitive to Levaquin and to cefotaxime. The patien t was begun on Levaquin. Blood cultures are negative. The Levaquin was good for the K. pneumoniae and also for the E. coli, but patient is not covered for Enterococcus at this point. She is not all ergic to penicillin. PAST MEDICAL HISTORY: Operations, as outlined. FAMILY HISTORY: Noncontributory. SOCIAL HISTORY: She does not smoke, drink. She is a former smoker. She also was a former drinker and use cocaine, but she has not used drugs within the past year. FAMILY HISTORY: Positive for pancreatic cancer. ALLERGIES: NONE TO PENICILLIN, SULFA OR FOODS. MEDICATIONS: Per chart. REVIEW OF SYSTEMS: Noncontributory. PHYSICAL EXAMINATION GENERAL: The patient is a well-developed, well-nourished female, alert, responsive, in no acute dis tress. VITAL SIGNS: Stable. She is afebrile. SKIN: Without generalized rash. HEENT: Within normal limits. NECK: Supple. LYMPHATIC: Lymph nodes, none palpable. CHEST: Decreased breath sounds at the bases. HEART: Without murmur or gallop. ABDOMEN: Soft, mild tenderness to palpation in the suprapubic areas. She has a left and right nephr ostomy tube in place. There is some leakage from the right nephrostomy tube. She has some right CV A tenderness to palpation. EXTREMITIES: Without cyanosis, clubbing or edema. RECTAL: Deferred. GENITAL: Deferred. NEUROLOGIC: No focal neurological abnormality. IMPRESSION AND PLAN: The patient is currently growing Enterococcus, Klebsiella pneumoniae and Esche richia coli from her urine. She is covered with Levaquin for Escherichia coli and Klebsiella pneumo niae. I think that we will add amoxicillin to her regimen, 500 mg t.i.d. I will discuss my findings with the hospitalist. Dictated By: CUCA HUNTLEY MD, JD/CRISTIAN Conf#: [id number] DID#: [id number]
[2017-03-09 08:44] VITALS: BP 117/67; RESP 20
[2017-03-09] MEDS: MAGNESIUM OXIDE 400 MG TAB PO SCH ×3 (09:00→20:27)
[2017-03-09] MEDS: L ACIDOPHIL/B LACTIS/B LONGUM CAPSULE PO SCH ×2 (09:00→20:27)
[2017-03-09] MEDS: MEGESTROL (40 MG/ML) 10ML CUP PO SCH (09:00)
[2017-03-09] MEDS: DOCUSATE SODIUM 100 MG CAP PO SCH ×2 (09:00→20:27)
[2017-03-09] MEDS: DRONABINOL 2.5 MG CAP PO SCH ×2 (09:04→20:27)
--- NOTE | 2017-03-09 12:56 | CONS ---
Date/Time of Note Date/Time of Note DATE: 03/09/17 TIME: 12:55 Assessment/Plan Assessment/Plan Chief Complaint/Hosp Course SUBJECTIVE: No acute changes. The patient is alert, feels good. Denies pain, discomfort. No fevers. MICROBIOLOGY: Urine culture grew Klebsiella, enterococcus species, and E. coli. INDWELLINGS: Bilateral nephrostomies. ANTIMICROBIALS: The patient is on Levaquin and Amoxicillin. PHYSICAL EXAMINATION: GENERAL: Cachectic, middle-aged woman who is awake, in no distress. HEENT: Head atraumatic, normocephalic. Sclerae anicteric. Buccal mucosa pink. NECK: Supple. CHEST: Rise symmetrical. Breath sounds clear. HEART: S1, S2. ABDOMEN: Soft. Bowel tones present. EXTREMITIES: Without cyanosis. ASSESSMENT: 1. Polymicrobial urinary tract infection. 2. Mild bilateral hydronephrosis with placement of bilateral nephrostomies. 3. History of cervical cancer status post chemotherapy last week. 4. Hypertension. PLAN: The patient remains stable. Anticipate treating her with current antibiotics for 2 weeks, continue probiotics [facility] staff Problems: Consultation Date/Type/Reason Admit Date/Time Mar 06, 2017 at 09:58 Initial Consult Date Type of Consultation: id Exam/Review of Systems Vital Signs Vitals Vital Signs Date Time Temp Pulse Resp B/P Pulse Ox O2 Delivery O2 Flow Rate FiO2 03/09/17 08:44 97.9 82 20 117/67 100 Intake and Output 03/08/17 03/08/17 03/09/17 15:00 23:00 07:00 Intake Total 700 ml 990 ml Output Total 1900 ml 1700 ml Balance -1200 ml -710 ml Results Result Diagram: 03/07/17 0806 03/06/17 0440 Medications Medications Current Medications Sodium Chloride (NS) 1,000 ml @ 75 mls/hr [id number] IV Last administered on 03/09 01:09; Admin Dose 75 MLS/HR; Start 03/05/17 at 06:27 Ondansetron HCl (Zofran Inj) 4 mg Q6H PRN IV NAUSEA AND/OR VOMITING; Start at 06:30 Docusate Sodium (Colace) 100 mg BID PO Last administered on 03/09/17 09:00; Admin Dose 100 MG; Start 03/05/17 at 09:00 Dronabinol (Marinol) 2.5 mg BID PO Last administered on 03/09/17 09:04; Admin Dose 2.5 MG; Start 03/05/17 at 09:00 Magnesium Oxide (Mag-Ox 400) 400 mg TID PO Last administered on 03/09/17 09:00 ; Admin Dose 400 MG; Start 03/05/17 at 09:00 Megestrol Acetate (Megace Susp) 800 mg DAILY PO Last administered on 03/09/17 09:00; Admin Dose 800 MG; Start 03/05/17 at 09:00 Ondansetron HCl (Zofran Tab) 4 mg Q8 PO Last administered on 03/09/17 05:27; Admin Dose 4 MG; Start 03/05/17 at 14:00 Senna (Senokot) 1 tab QHS PO Last administered on 03/08/17 20:01; Admin Dose 1 TAB; Start 03/05/17 at 21:00 Levofloxacin (Levaquin) 750 mg DAILY@06 PO Last administered on 03/09/17 05:27 ; Admin Dose 750 MG; Start 03/06/17 at 06:00 Morphine Sulfate (morphine) 4 mg Q4H PRN IV SEVERE PAIN LEVEL 7-10 Last administered on 03/09/17 09:42; Admin Dose 4 MG; Start 03/08/17 at 10:55 Amoxicillin (Amoxicillin) 500 mg Q8 PO Last administered on 03/09/17 05:27; Admin Dose 500 MG; Start 03/08/17 at 22:00 Lactobacillus Acidophilus (Florajen3 Capsule) 1 each BID PO Last administered on 03/09/17 09:00; Admin Dose 1 EACH; Start 03/08/17 at 21:00 SHANNON PHOENIX NP Mar 09, 2017 12:56
[2017-03-09 14:42] VITALS: BP 115/71; PULSE 81; RESP 18
[2017-03-09] MEDS ORDERED: LIDOCAINE 1% (MDV) 20 ML INJ ONE (15:05)
[2017-03-09] MEDS ORDERED: IOHEXOL 300MG/ML 30 ML BTL ONE ×2 (15:05→16:09)
[2017-03-09] MEDS: RIVAROXABAN 20 MG TABLET PO SCH (16:33)
[2017-03-09 19:30] VITALS: BP 112/69; RESP 20
[2017-03-09] MEDS: SENNA TAB PO SCH (20:27)
--- NOTE | 2017-03-09 21:50 | PN ---
Date/Time of Note Date/Time of Note DATE: 03/09/17 TIME: 21:50 Assessment/Plan Lines/Catheters IV Catheter Type (from Nrsg): Peripheral IV Urinary Cath still in place: No Assessment/Plan Assessment/Plan 56 yo F with pmhx cervical ca cb bl hydro warranting nephrostomy tube placement admitted for R flank pain, hypotension concerning for pyelonephritis and possible nephrostomy tube leak PLAN changed levoflox to PO given MDR urine culture, ID cs for abx guidance R sided nephrostomy tube xch ordered. Per IR will not happen until 03.09 cont home meds-->inc morphine dose dispo once tube exchange complete Exam/Review of Systems Vital Signs Vitals Vital Signs Date Time Temp Pulse Resp B/P Pulse Ox O2 Delivery O2 Flow Rate FiO2 03/09/17 19:30 98.6 85 20 112/69 97 03/09/17 14:42 Room Air Intake and Output 03/08/17 03/08/17 03/09/17 15:00 23:00 07:00 Intake Total 700 ml 990 ml Output Total 1900 ml 1700 ml Balance -1200 ml -710 ml Exam Constitutional: alert, well developed Head: atraumatic, normocephalic Eyes: EOMI, PERRL Respiratory: clear to auscultation, normal air movement Cardiovascular: nl pulses, regular rate and rhythm Gastrointestinal: soft Extremities: normal pulses Results Result Diagram: 03/07/17 0806 03/06/17 0440 Medications Medications Current Medications Sodium Chloride (NS) 1,000 ml @ 75 mls/hr [id number] IV Last administered on 03/09 17:31; Admin Dose 75 MLS/HR; Start 03/05/17 at 06:27 Ondansetron HCl (Zofran Inj) 4 mg Q6H PRN IV NAUSEA AND/OR VOMITING; Start at 06:30 Docusate Sodium (Colace) 100 mg BID PO Last administered on 03/09/17 20:27; Admin Dose 100 MG; Start 03/05/17 at 09:00 Dronabinol (Marinol) 2.5 mg BID PO Last administered on 03/09/17 20:27; Admin Dose 2.5 MG; Start 03/05/17 at 09:00 Magnesium Oxide (Mag-Ox 400) 400 mg TID PO Last administered on 03/09/17 20:27 ; Admin Dose 400 MG; Start 03/05/17 at 09:00 Megestrol Acetate (Megace Susp) 800 mg DAILY PO Last administered on 03/09/17 09:00; Admin Dose 800 MG; Start 03/05/17 at 09:00 Ondansetron HCl (Zofran Tab) 4 mg Q8 PO Last administered on 03/09/17 05:27; Admin Dose 4 MG; Start 03/05/17 at 14:00 Senna (Senokot) 1 tab QHS PO Last administered on 03/09/17 20:27; Admin Dose 1 TAB; Start 03/05/17 at 21:00 Levofloxacin (Levaquin) 750 mg DAILY@06 PO Last administered on 03/09/17 05:27 ; Admin Dose 750 MG; Start 03/06/17 at 06:00 Morphine Sulfate (morphine) 4 mg Q4H PRN IV SEVERE PAIN LEVEL 7-10 Last administered on 03/09/17 21:37; Admin Dose 4 MG; Start 03/08/17 at 10:55 Amoxicillin (Amoxicillin) 500 mg Q8 PO Last administered on 03/09/17 21:40; Admin Dose 500 MG; Start 03/08/17 at 22:00 Lactobacillus Acidophilus (Florajen3 Capsule) 1 each BID PO Last administered on 03/09/17 20:27; Admin Dose 1 EACH; Start 03/08/17 at 21:00 AR BARKER MD Mar 09, 2017 21:50
[2017-03-10] MEDS: ONDANSETRON 4 MG TAB PO SCH ×3 (06:13→22:40)
[2017-03-10] MEDS: LEVOFLOXACIN 750 MG TABLET PO SCH (06:13)
[2017-03-10] MEDS: AMOXICILLIN 500 MG CAP PO SCH ×3 (06:13→22:40)
[2017-03-10] MEDS: morphine 4 MG/ML VIAL IV PRN ×4 (06:15→22:41)
[2017-03-10] MEDS: SOD CHLORIDE 0.9% 1,000 ML IV SCH ×2 (06:19→20:37)
[2017-03-10 08:47] VITALS: BP 117/64; RESP 20
[2017-03-10] MEDS: DOCUSATE SODIUM 100 MG CAP PO SCH ×2 (09:04→20:33)
[2017-03-10] MEDS: MEGESTROL (40 MG/ML) 10ML CUP PO SCH (09:04)
[2017-03-10] MEDS: DRONABINOL 2.5 MG CAP PO SCH ×2 (09:04→22:40)
[2017-03-10] MEDS: MAGNESIUM OXIDE 400 MG TAB PO SCH ×3 (09:04→20:33)
[2017-03-10] MEDS: L ACIDOPHIL/B LACTIS/B LONGUM CAPSULE PO SCH ×2 (09:04→22:40)
--- NOTE | 2017-03-10 12:12 | PN ---
DATE: 03/10/2017 INFECTIOUS DISEASE PROGRESS NOTE SUBJECTIVE: No acute events, no fevers. The patient is sleeping, looks comfortable, no labs. MICROBIOLOGY: Urine culture grew Klebsiella, Enterococcus, and E coli. ANTIMICROBIALS: The patient is on: 1. Amoxicillin 2. Levaquin. INDWELLINGS: Bilateral nephrostomies. PHYSICAL EXAMINATION: GENERAL: Well-developed, middle-aged -[place] woman who is alert, in no distress. HEENT: Head atraumatic, normocephalic. Sclerae anicteric. Buccal mucosa pink. NECK: Supple. CHEST: Rise symmetrical. Breath sounds clear. HEART: S1, S2. ABDOMEN: Soft, bowel sounds present. EXTREMITIES: No edema. ASSESSMENT: 1. Polymicrobial urinary tract infection. 2. Mild bilateral hydronephrosis with a history of bilateral nephrostomy tubes. 3. History of cervical carcinoma. 4. Hypertension. PLAN: The patient remains stable. Continue present care. Continue on current antibiotics for a to dayron of 2 weeks. Follow recommendations of consultants. Dictated By: SHANNON PHOENIX ACCOUNTANT COST for CUCA SOTO/CRISTIAN Conf#: [id number] DID#: [id number]
[2017-03-10] MEDS: RIVAROXABAN 20 MG TABLET PO SCH (17:17)
[2017-03-10 19:44] VITALS: BP 109/72; RESP 19
[2017-03-10] MEDS: SENNA TAB PO SCH (20:33)
--- NOTE | 2017-03-10 22:45 | PN ---
Date/Time of Note Date/Time of Note DATE: 03/10/17 TIME: 22:44 Assessment/Plan VTE Prophylaxis VTE Prophylaxis Intervention: SCD's Lines/Catheters IV Catheter Type (from Nrsg): Peripheral IV Urinary Cath still in place: No Assessment/Plan Assessment/Plan ASSESSMENT: 56 yo F with pmhx cervical ca cb bl hydro warranting nephrostomy tube placement admitted for R flank pain, hypotension concerning for pyelonephritis and possible nephrostomy tube leak. PLAN changed levoflox to PO given MDR urine culture, ID cs for abx guidance R sided nephrostomy tube xch ordered. Per IR will not happen until 03.09 cont home meds-->inc morphine dose dispo once tube exchange complete Subjective 24 Hr Interval Summary Free Text/Dictation no acute events Exam/Review of Systems Vital Signs Vitals Vital Signs Date Time Temp Pulse Resp B/P Pulse Ox O2 Delivery O2 Flow Rate FiO2 03/10/17 19:44 98.5 83 19 109/72 98 03/09/17 14:42 Room Air Intake and Output 03/09/17 03/09/17 03/10/17 15:00 23:00 07:00 Intake Total 1000 ml 1323 ml Output Total 980 ml 1250 ml Balance 20 ml 73 ml Exam Constitutional: alert, well developed Head: atraumatic, normocephalic Eyes: EOMI, PERRL Respiratory: clear to auscultation, normal air movement Cardiovascular: nl pulses, regular rate and rhythm Gastrointestinal: soft Extremities: normal pulses Results Result Diagram: 03/07/17 0806 03/06/17 0440 Medications Medications Current Medications Sodium Chloride (NS) 1,000 ml @ 75 mls/hr [id number] IV Last administered on 03/10 20:37; Admin Dose 75 MLS/HR; Start 03/05/17 at 06:27 Ondansetron HCl (Zofran Inj) 4 mg Q6H PRN IV NAUSEA AND/OR VOMITING; Start at 06:30 Docusate Sodium (Colace) 100 mg BID PO Last administered on 03/10/17 20:33; Admin Dose 100 MG; Start 03/05/17 at 09:00 Dronabinol (Marinol) 2.5 mg BID PO Last administered on 03/10/17 22:40; Admin Dose 2.5 MG; Start 03/05/17 at 09:00 Magnesium Oxide (Mag-Ox 400) 400 mg TID PO Last administered on 03/10/17 20:33 ; Admin Dose 400 MG; Start 03/05/17 at 09:00 Megestrol Acetate (Megace Susp) 800 mg DAILY PO Last administered on 03/10/17 09:04; Admin Dose 800 MG; Start 03/05/17 at 09:00 Ondansetron HCl (Zofran Tab) 4 mg Q8 PO Last administered on 03/10/17 22:40; Admin Dose 4 MG; Start 03/05/17 at 14:00 Senna (Senokot) 1 tab QHS PO Last administered on 03/10/17 20:33; Admin Dose 1 TAB; Start 03/05/17 at 21:00 Levofloxacin (Levaquin) 750 mg DAILY@06 PO Last administered on 03/10/17 06:13 ; Admin Dose 750 MG; Start 03/06/17 at 06:00 Morphine Sulfate (morphine) 4 mg Q4H PRN IV SEVERE PAIN LEVEL 7-10 Last administered on 03/10/17 22:41; Admin Dose 4 MG; Start 03/08/17 at 10:55 Amoxicillin (Amoxicillin) 500 mg Q8 PO Last administered on 03/10/17 22:40; Admin Dose 500 MG; Start 03/08/17 at 22:00 Lactobacillus Acidophilus (Florajen3 Capsule) 1 each BID PO Last administered on 03/10/17 22:40; Admin Dose 1 EACH; Start 03/08/17 at 21:00 AR BARKER MD Mar 10, 2017 22:45
[2017-03-11] MEDS: ONDANSETRON 4 MG TAB PO SCH ×2 (06:03→13:21)
[2017-03-11] MEDS: LEVOFLOXACIN 750 MG TABLET PO SCH (06:03)
[2017-03-11] MEDS: AMOXICILLIN 500 MG CAP PO SCH ×2 (06:03→13:21)
[2017-03-11] MEDS: morphine 4 MG/ML VIAL IV PRN ×3 (06:03→14:14)
[2017-03-11 06:04] LABS: ADD SCAN DIFF NO
[2017-03-11 06:12] LABS: ABNORMAL IP MESSAGE 1; BASOPHILS % 0.3 % (0.0-2.0); EOSINOPHILS # 0.1 10^3/ul (0.0-0.5); EOSINOPHILS % 1.6 % (0.0-7.0); HEMATOCRIT 26.9 % (37.0-47.0); HEMOGLOBIN 8.2 g/dl (12.0-16.0); LYMPHOCYTES # 0.5 10^3/ul (0.8-2.9); LYMPHOCYTES % 14.2 % (15.0-51.0); MEAN CORPUSCULAR HEMOGLOBIN 26.7 pg (29.0-33.0); MEAN CORPUSCULAR HGB CONC 30.5 g/dl (32.0-37.0); MEAN CORPUSCULAR VOLUME 87.6 fl (82.0-101.0); MONOCYTE # 0.4 10^3/ul (0.3-0.9); MONOCYTES % 11.3 % (0.0-11.0); NEUTROPHIL # 2.7 10^3/ul (1.6-7.5); NEUTROPHILS % 70.5 % (39.0-77.0); PLATELET COUNT 324 10^3/UL (140-415); RED BLOOD COUNT 3.07 10^6/ul (4.20-5.40); RED CELL DISTRIBUTION WIDTH 16.8 % (11.5-14.5); WHITE BLOOD COUNT 3.8 10^3/ul (4.8-10.8)
[2017-03-11 06:47] VITALS: BP 126/83; PULSE 78
[2017-03-11 06:55] LABS: ALBUMIN/GLOBULIN RATIO 1.07; CREATININE 0.96 mg/dl (0.44-1.00); POTASSIUM 4.7 mmol/L (3.5-5.1); TOTAL PROTEIN 5.8 g/dl (6.1-8.1)
[2017-03-11 08:00] VITALS: BP 119/69; RESP 19
[2017-03-11] MEDS: DOCUSATE SODIUM 100 MG CAP PO SCH (09:47)
[2017-03-11] MEDS: MAGNESIUM OXIDE 400 MG TAB PO SCH ×2 (09:51→13:21)
[2017-03-11] MEDS: L ACIDOPHIL/B LACTIS/B LONGUM CAPSULE PO SCH (09:51)
[2017-03-11] MEDS: MEGESTROL (40 MG/ML) 10ML CUP PO SCH (09:51)
[2017-03-11] MEDS: SOD CHLORIDE 0.9% 1,000 ML IV SCH (09:53)
[2017-03-11 10:15] VITALS: BP 115/78; PULSE 85; RESP 18
[2017-03-11] MEDS: DRONABINOL 2.5 MG CAP PO SCH (10:50)
--- NOTE | 2017-03-11 13:30 | CONS ---
Date/Time of Note Date/Time of Note DATE: 03/11/17 TIME: 13:30 Assessment/Plan Assessment/Plan Chief Complaint/Hosp Course SUBJECTIVE: No acute events, no fevers. The patient is alert, denies pain, feels good. MICROBIOLOGY: Urine culture grew Klebsiella, Enterococcus, and E coli. ANTIMICROBIALS: 1. Amoxicillin 2. Levaquin. INDWELLINGS: Bilateral nephrostomies. PHYSICAL EXAMINATION: GENERAL: Well-developed, middle-aged -[place] woman who is alert, in no distress. HEENT: Head atraumatic, normocephalic. Sclerae anicteric. Buccal mucosa pink. NECK: Supple. CHEST: Rise symmetrical. Breath sounds clear. HEART: S1, S2. ABDOMEN: Soft, bowel sounds present. EXTREMITIES: No edema. ASSESSMENT: 1. Polymicrobial urinary tract infection. 2. Mild bilateral hydronephrosis with a history of bilateral nephrostomy tubes. 3. History of cervical carcinoma. 4. Hypertension. PLAN: The patient remains stable. Continue present care. Continue on current antibiotics for a total of 2 weeks. Follow recommendations of consultants. SWATHI pt Problems: Consultation Date/Type/Reason Admit Date/Time Mar 06, 2017 at 09:58 Type of Consultation: id Exam/Review of Systems Vital Signs Vitals Vital Signs Date Time Temp Pulse Resp B/P Pulse Ox O2 Delivery O2 Flow Rate FiO2 03/11/17 10:15 98.5 85 18 115/78 100 Room Air Intake and Output 03/10/17 03/10/17 03/11/17 15:00 23:00 07:00 Intake Total 1420 ml 1290 ml Output Total 1700 ml 2000 ml Balance -280 ml -710 ml Results Result Diagram: 03/11/17 0448 03/11/17 0448 Results 24 hrs Laboratory Tests Test 03/11/17 04:48 White Blood Count 3.8 L Red Blood Count 3.07 L Hemoglobin 8.2 L Hematocrit 26.9 L Mean Corpuscular Volume 87.6 Mean Corpuscular Hemoglobin 26.7 L Mean Corpuscular Hemoglobin Concent 30.5 L Red Cell Distribution Width 16.8 H Platelet Count 324 # Mean Platelet Volume 9.0 Neutrophils % 70.5 Lymphocytes % 14.2 L Monocytes % 11.3 H Eosinophils % 1.6 Basophils % 0.3 Nucleated Red Blood Cells % 0.0 Neutrophils # 2.7 Lymphocytes # 0.5 L Monocytes # 0.4 Eosinophils # 0.1 Basophils # 0.0 Nucleated Red Blood Cells # 0.0 Sodium Level 140 Potassium Level 4.7 Chloride Level 112 H Carbon Dioxide Level 22 Anion Gap 11 Blood Urea Nitrogen 14 Creatinine 0.96 Glucose Level 98 Calcium Level 9.0 Total Bilirubin 0.0 L Direct Bilirubin 0.00 Indirect Bilirubin 0.0 Aspartate Amino Transf (AST/SGOT) 14 L Alanine Aminotransferase (ALT/SGPT) 20 Alkaline Phosphatase 60 Total Protein 5.8 L Albumin 3.0 L Globulin 2.80 Albumin/Globulin Ratio 1.07 Medications Medications Current Medications Sodium Chloride (NS) 1,000 ml @ 75 mls/hr [id number] IV Last administered on 03/11 09:53; Admin Dose 75 MLS/HR; Start 03/05/17 at 06:27 Ondansetron HCl (Zofran Inj) 4 mg Q6H PRN IV NAUSEA AND/OR VOMITING; Start at 06:30 Docusate Sodium (Colace) 100 mg BID PO Last administered on 03/11/17 09:47; Admin Dose 100 MG; Start 03/05/17 at 09:00 Dronabinol (Marinol) 2.5 mg BID PO Last administered on 03/11/17 10:50; Admin Dose 2.5 MG; Start 03/05/17 at 09:00 Magnesium Oxide (Mag-Ox 400) 400 mg TID PO Last administered on 03/11/17 13:21 ; Admin Dose 400 MG; Start 03/05/17 at 09:00 Megestrol Acetate (Megace Susp) 800 mg DAILY PO Last administered on 03/11/17 09:51; Admin Dose 800 MG; Start 03/05/17 at 09:00 Ondansetron HCl (Zofran Tab) 4 mg Q8 PO Last administered on 03/11/17 13:21; Admin Dose 4 MG; Start 03/05/17 at 14:00 Senna (Senokot) 1 tab QHS PO Last administered on 03/10/17 20:33; Admin Dose 1 TAB; Start 03/05/17 at 21:00 Levofloxacin (Levaquin) 750 mg DAILY@06 PO Last administered on 03/11/17 06:03 ; Admin Dose 750 MG; Start 03/06/17 at 06:00 Morphine Sulfate (morphine) 4 mg Q4H PRN IV SEVERE PAIN LEVEL 7-10 Last administered on 03/11/17 10:12; Admin Dose 4 MG; Start 03/08/17 at 10:55 Amoxicillin (Amoxicillin) 500 mg Q8 PO Last administered on 03/11/17 13:21; Admin Dose 500 MG; Start 03/08/17 at 22:00 Lactobacillus Acidophilus (Florajen3 Capsule) 1 each BID PO Last administered on 03/11/17 09:51; Admin Dose 1 EACH; Start 03/08/17 at 21:00 SHANNON PHOENIX NP Mar 11, 2017 13:30
--- NOTE | 2017-03-11 16:40 | PDOCDIS ---
Discharge Instructions CONDITION Patient Condition: Stable HOME CARE INSTRUCTIONS: Special Diet: REGULAR ACTIVITY: Activity Restrictions: Slowly Increase Activity FOLLOW UP/APPOINTMENTS Appointments follow-up with primary care Doctor, and urology OTHER ORDERS: Other Orders: call 911 and go to nearest ER if you develop fever, decreased urine from nephrostomy bag, severe pain, bleeding or shortness of breath AR BARKER MD Mar 11, 2017 16:40
[2017-03-11] MEDS ORDERED: AMO500 PO (16:41)
[2017-03-11] MEDS ORDERED: LEVO750T25 PO (16:41)
[2017-03-11] MEDS: RIVAROXABAN 20 MG TABLET PO SCH (17:23)
== END 2017-03-11 21:08 | disposition home or self-care (01) | DRG 699 ==
LOC: E/R 21:05 → MS1 03-05 03:37 → OBSVTOIN 03-06 09:58 → PP2 03-11 06:38
PROVIDERS: ADMIT Family Medicine; ATTEND Family Medicine
DX: T83.512A Infection and inflammatory reaction due to nephrostomy catheter, initial encounter (principal); N39.0 Urinary tract infection, site not specified; I10 Essential (primary) hypertension; N13.1 Hydronephrosis with ureteral stricture, not elsewhere classified; C53.9 Malignant neoplasm of cervix uteri, unspecified; B95.2 Enterococcus as the cause of diseases classified elsewhere; B96.1 Klebsiella pneumoniae [K. pneumoniae] as the cause of diseases classified elsewhere; Z87.891 Personal history of nicotine dependence; B96.20 Unspecified Escherichia coli [E. coli] as the cause of diseases classified elsewhere; Y84.8 Other medical procedures as the cause of abnormal reaction of the patient, or of later complication, without mention of misadventure at the time of the procedure
CPT/HCPCS: 71010; 76775; 80048; 80053; 81001; 83605; 83735; 84484; 85025; 85610; 85730; 87040; 87086; 93005; 96365; 96366; C9113; G0378; J1956; J2270; J2405; J7030; Q9967

== ENCOUNTER 2017-04-04 10:43 | Inpatient (IN) | payer OTHER ==
[~2017-04-04] VITALS: Ht 154.9 cm; Wt 52.3 kg
[~2017-04-04 10:43] MED LIST: AMO500 PO; DOCU-159 PO; DRON2.5C PO; FAMO20TA18 PO; FURO40TA4 PO; HYD25 PO; HYDR-902 PO; LEVO750T25 PO; MAGN400T27 PO; MEGE400O PO; ONDA4TAB95 PO; RIVA20TA PO; SENN-53 PO; SODI15OR8 PO
[2017-04-04] MEDS ORDERED: SOD CHLORIDE 0.9% 1,000 ML IV STA (10:55)
[2017-04-04] MEDS ORDERED: morphine 2 MG INJ IV ONE (11:00)
[2017-04-04] MEDS ORDERED: morphine 4 MG/ML VIAL IV STA (11:14)
[2017-04-04 11:24] LABS: ADD SCAN DIFF NO
[2017-04-04 11:27] LABS: ABNORMAL IP MESSAGE 1; BASOPHILS % 0.1 % (0.0-2.0); EOSINOPHILS % 0.4 % (0.0-7.0); HEMATOCRIT 38.3 % (37.0-47.0); HEMOGLOBIN 12.4 g/dl (12.0-16.0); LYMPHOCYTES # 0.3 10^3/ul (0.8-2.9); LYMPHOCYTES % 3.6 % (15.0-51.0); MEAN CORPUSCULAR HEMOGLOBIN 28.4 pg (29.0-33.0); MEAN CORPUSCULAR HGB CONC 32.4 g/dl (32.0-37.0); MEAN CORPUSCULAR VOLUME 87.6 fl (82.0-101.0); MEAN PLATELET VOLUME 8.8 fl (7.4-10.4); MONOCYTE # 0.2 10^3/ul (0.3-0.9); MONOCYTES % 2.5 % (0.0-11.0); NEUTROPHIL # 8.8 10^3/ul (1.6-7.5); PLATELET COUNT 280 10^3/UL (140-415); RED BLOOD COUNT 4.37 10^6/ul (4.20-5.40); WHITE BLOOD COUNT 9.4 10^3/ul (4.8-10.8)
[2017-04-04 12:31] LABS: ADD UMIC YES; UR BILIRUBIN (Dip) NEGATIVE (NEGATIVE); UR BLOOD (Dip) 3+ (NEGATIVE); UR CLARITY SLIGHTLY CLOUDY (CLEAR); UR COLOR LT. YELLOW (YELLOW); UR GLUCOSE (Dip) NEGATIVE (NEGATIVE); UR KETONES (Dip) 2+ (NEGATIVE); UR LEUKOCYTE ESTERASE (Dip) 1+ (NEGATIVE); UR NITRITE (Dip) NEGATIVE (NEGATIVE); UR TOTAL PROTEIN (Dip) 1+ (NEGATIVE); UR UROBILINOGEN (Dip) 0.2 E.U./dL (0.1-1.0)
--- NOTE | 2017-04-04 12:38 | RADRPT ---
PROCEDURE: US Pelvis. CLINICAL INDICATION: Postmenopausal vaginal bleeding. TECHNIQUE: The pelvis was evaluated with transabdominal and transvaginal sonography in the axial a nd sagittal planes. COMPARISON: No prior study is available for comparison. FINDINGS: The uterus measures 7.4 x 3.2 x 7.7 cm. There is a calcified anterior right fibroid measuring 4.6 x 4.0 cm. The endometrium and ovaries are not visualized. There is no other pelvic mass or free flu id. IMPRESSION: 1. Calcified fibroid in the uterus measuring 4.6 x 4.0 cm. 2. Endometrium and ovaries not visualized. 3. Otherwise unremarkable study. RPTAT: QQ .Carlos Rogers MD, MD Date Time Electronically viewed and signed by .Carlos Rogers MD, on 04/04/2017 12:38 .R/
[2017-04-04 12:50] LABS: UR BACTERIA FEW /HPF (NONE SEEN); UR SQUAMOUS EPITHELIAL CELL RARE /HPF (FEW); URINE RBCS 25-50 /HPF (0)
[2017-04-04 13:29] LABS: HEMATOCRIT 35.8 % (37.0-47.0); HEMOGLOBIN 11.5 g/dl (12.0-16.0)
[2017-04-04] MEDS ORDERED: CEFEPIME 1GM/50 ML (PMX) 50 ML IVPB ONE (14:00)
[2017-04-04] MEDS ORDERED: HYDROmorphONE 1 MG/ML SYG IV STA ×2 (14:28→16:54)
--- NOTE | 2017-04-04 17:46 | ERD ---
ER Documentation Chief Complaint Date/Time DATE: 04/04/17 TIME: 17:35 Chief Complaint VAG BLEEDING SINCE LAST NIGHT HPI This 56-year-old female presents for vaginal bleeding one episode last night and once this morning. She has a history of cervical cancer in which she is receiving chemo which she just received 2 days ago. Her oncologist are at [facility]. Also states that she sometimes suffers from urinary tract infections. She says she has significant pain and is no longer controlled by her double dose Percocet at home it is in the suprapubic area. She has had chills and feels generally weak. She denies any fevers. ROS All systems reviewed and are negative except as per history of present illness. Medications Home Meds Active Scripts Amoxicillin* (Amoxicillin*) 500 Mg Cap, 500 MG PO Q8 for 14 Days, CAP Prov:AR BARKER MD 03/11/17 Levofloxacin* (Levaquin*) 750 Mg Tablet, 750 MG PO DAILY@06 for 14 Days, TAB Prov:AR BARKER MD 03/11/17 Reported Medications Ondansetron Hcl* (Ondansetron Hcl*) 4 Mg Tablet, 4 MG PO Q8 for NAUSEA AND/OR VOMITING, TAB 03/04/17 Dronabinol* (Dronabinol*) 2.5 Mg Capsule, 2.5 MG PO BID, CAP 03/04/17 Hydrocodone/Acetaminophen (Hickman 10-325 Tablet) 1 Each Tablet, 1 EACH PO, TAB 03/04/17 Sodium Polystyrene Sulfonate* (Kayexalate*) 15 Gm/60 Ml Susp, 30 GM PO, ML 03/04/17 Sennosides* (Senna Lax*) 8.6 Mg Tablet, 1 TAB PO QHS for CONSTIPATION, TAB 03/04/17 Rivaroxaban* (Xarelto*) 20 Mg Tablet, 20 MG PO WITH DINNER, TAB 03/04/17 Megestrol Acetate* (Megace*) 400 Mg/10 Ml Oral.susp, 800 MG PO DAILY, ML 03/04/17 Magnesium Oxide* (Mag-Oxide*) 400 Mg Tablet, 400 MG PO TID, TAB 03/04/17 Hydrochlorothiazide* (Hydrochlorothiazide*) 25 Mg Tab, 25 MG PO BID, #60 TAB 03/04/17 Furosemide* (Furosemide*) 40 Mg Tablet, 40 MG PO BID, TAB 03/04/17 Famotidine* (Famotidine*) 20 Mg Tablet, 20 MG PO BID, #60 TAB 03/04/17 Docusate Sodium* (Docusate Sodium*) 100 Mg Capsule, 100 MG PO BID, #60 CAP 03/04/17 Allergies Allergies: Coded Allergies: No Known Allergy (Unverified , 03/04/17) PMhx/Soc History of Surgery: Yes (nephrostomy placed 2015) Anesthesia Reaction: No Hx Neurological Disorder: Yes (general weakness) Hx Respiratory Disorders: No Hx Cardiac Disorders: Yes (hypotension) Hx Psychiatric Problems: No Hx Miscellaneous Medical Probl: Yes (received chemo (Jun-Oct) then was in remission and then it returned) Hx Alcohol Use: Yes (former drinker and was a little amount) Hx Substance Use: Yes (cocaine; many years ago) Hx Tobacco Use: Yes Smoking Status: Current every day smoker Physical Exam Vitals Vital Signs Date Time Temp Pulse Resp B/P Pulse Ox O2 Delivery O2 Flow Rate FiO2 04/04/17 17:13 96 15 122/87 96 Room Air 04/04/17 16:18 79 17 124/81 100 Room Air 04/04/17 14:28 89 16 118/81 100 Room Air 04/04/17 12:35 97 17 111/87 100 Room Air 04/04/17 10:44 99.1 131 18 108/77 96 Physical Exam Const: [] Mild distress Head: Atraumatic Eyes: Normal Conjunctiva ENT: Normal External Ears, Nose and Mouth. Neck: Full range of motion..~ No meningismus. Resp: Clear to auscultation bilaterally Cardio: Regular rate and rhythm, no murmurs Abd: Soft, moderate suprapubic and bilateral pain just lateral to the suprapubic area without guarding or rebound, non distended. Normal bowel sounds Skin: No petechiae or rashes Back: No midline or flank tenderness Ext: No cyanosis, or edema Neur: Awake and alert and oriented 3, no focal deficits Psych: Normal Mood and Affect Result Diagram: 04/04/17 1310 Results 24 hrs Laboratory Tests Test 04/04/17 11:20 04/04/17 12:11 04/04/17 13:10 White Blood Count 9.410^3/ul Red Blood Count 4.3710^6/ul Hemoglobin 12.4g/dl 11.5g/dl Hematocrit 38.3% 35.8% Mean Corpuscular Volume 87.6fl Mean Corpuscular Hemoglobin 28.4pg Mean Corpuscular Hemoglobin Concent 32.4g/dl Red Cell Distribution Width 17.0% Platelet Count 96671^3/UL Mean Platelet Volume 8.8fl Neutrophils % 93.0% Lymphocytes % 3.6% Monocytes % 2.5% Eosinophils % 0.4% Basophils % 0.1% Nucleated Red Blood Cells % 0.0/100WBC Neutrophils # 8.810^3/ul Lymphocytes # 0.310^3/ul Monocytes # 0.210^3/ul Eosinophils # 0.010^3/ul Basophils # 0.010^3/ul Nucleated Red Blood Cells # 0.010^3/ul Urine Color LT. YELLOW Urine Clarity SLIGHTLY CLOUDY Urine pH 6.0 Urine Specific [place] 1.015 Urine Ketones 2+ Urine Nitrite NEGATIVE Urine Bilirubin NEGATIVE Urine Urobilinogen 0.2 E.U./dL Urine Leukocyte Esterase 1+ Urine Microscopic RBC 25-50/HPF Urine Microscopic WBC 5-10/HPF Urine Squamous Epithelial Cells RARE/HPF Urine Bacteria FEW/HPF Urine Hemoglobin 3+ Urine Glucose NEGATIVE% Urine Total Protein 1+ Current Medications Medications (Trade) Dose Ordered Sig/Eulalio Route PRN Reason Start Time Stop Time Status Last Admin Dose Admin Sodium Chloride (NS) 1,000 ml @ 1,000 mls/hr Q1H STAT IV 04/04/17 10:55 04/04/17 11:54 DC 04/04/17 11:25 Morphine Sulfate (morphine) 2 mg ONCE ONCE IV 04/04/17 11:00 04/04/17 11:01 DC 04/04/17 11:24 Morphine Sulfate 2 mg 2 mg ONCE STAT IV 04/04/17 11:14 04/04/17 11:15 DC 04/04/17 11:58 Cefepime HCl (Maxipime 1gm/50 ml (Pmx)) 50 ml @ 100 mls/hr ONCE ONCE IVPB 04/04/17 14:00 04/04/17 14:29 DC 04/04/17 14:07 Hydromorphone HCl (Dilaudid) 1 mg ONCE STAT IV 04/04/17 14:28 04/04/17 14:29 DC 04/04/17 14:32 Hydromorphone HCl (Dilaudid) 1 mg ONCE STAT IV 04/04/17 16:54 04/04/17 16:57 DC 04/04/17 17:10 Procedures/[facility] Intractable pain with patient with cervical cancer and fibroid uterus with current vaginal bleeding. Also has a urinary tract infection is likely pyelonephritis that she does have some pain on her left flank area. No severely elevated white count to qualify her for sepsis criteria however she is immunosuppressed secondary to chemotherapy. Did give her cefepime IV and obtained a urine culture. I obtained a repeat hemoglobin after giving her 1 L of fluid to see if any acute blood loss would cause a significant drop. It did drop by 1 but this is still far from meeting hemotherapy. However after given morphine for her pain she had no relief. After 1 of Dilaudid she still said she had significant pelvic pain. Administered 1 another milligram of Dilaudid she still had the pain. At this point I believe is prudent to admit her for pain control for intractable pain secondary to multiple factors including cervical cancer, fibroid uterus, urinary tract infection. I spoke to Dr. Booth who will be admitting. Pelvic ultrasound interpretation: Fibroid uterus. Departure Diagnosis: Primary Impression: Pyelonephritis Additional Impressions: Intractable abdominal pain Vaginal bleeding Generalized weakness Condition: Stable JERI KAM DO Apr 04, 2017 17:45
[2017-04-04 18:27] LABS: POTASSIUM 3.8 mmol/L (3.5-5.1)
[2017-04-04] MEDS ORDERED: ACETAMINOPHEN 325 MG TAB PO PRN (19:00)
[2017-04-04] MEDS ORDERED: ONDANSETRON 4 MG INJ IV PRN ×2 (19:00→21:00)
--- NOTE | 2017-04-04 19:34 | HP ---
Date/Time of Note Date/Time of Note DATE: 04/04/17 TIME: 18:46 Assessment/Plan VTE Prophylaxis VTE Prophylaxis Intervention: SCD's VTE Contraindication Reason: bleeding Assessment/Plan Assessment/Plan 56 yo F with a hx of cervical cancer who presents with intractable pain and vaginal bleeding 1. Cancer associated pain: Add long acting pain meds to regimen and titrate for improved control , ensure good bowel regimen to avoid OIC 2. Intermittent vaginal bleeding: Pelvic USS is unremarkable , Hold Xarelto for now, if no further episodes, patient may f/u with her doctors at [facility] for continued cancer treatment 3. Tobacco abuse: s/p cessation counselling 4. S/p nephrostomy: tubes seem to be working fine, monitor Further intervention per clinical course Prophylaxis: Scds/ pepcid HPI/ROS Admit Date/Time Admit Date/Time 04/04/17 Hx of Present Illness PRESENTING COMPLAINT: Vaginal bleeding and severe pain HISTORY OF PRESENTING COMPLAINT: This is a 56-year-old female with a history of cervical cancer who comes in with complaints of abdominal pain and vaginal bleeding. Vaginal bleeding was not profuse, and patient has just had spotting last night and this morning. She does have a history of cervical cancer and she is on chemotherapy at [facility]. She has had CVA abdominal pain and she has been taking Percocet without significant relief. She is also concerned that she might have a urinary tract infection Radha because she has had multiple in the past. She takes Xarelto for history of a DVT. She has not had any fever, she denies chest pain shortness of breath or palpitations. She has been generally weak but no bowel episodes, she has no focal deficits. She has a caregiver who usually takes around in a wheelchair. ROS 12 point review if systems was done and pertinent findings are as noted. PMH/Family/Social Past Medical History * cervical cancer on chemotherapy at [facility] * Hypertension * Tobacco abuse * Status post bilateral nephrostomy * R emote history of substance abuse . Social History Smoking Status: Current every day smoker Drug Use: other (remote hx of substance use) Exam/Review of Systems Vital Signs Vitals VS - Last 72 Hours, by Label Date Time Temp Pulse Resp B/P Pulse Ox O2 Delivery O2 Flow Rate FiO2 04/04/17 17:13 96 15 122/87 96 Room Air 04/04/17 16:18 79 17 124/81 100 Room Air 04/04/17 14:28 89 16 118/81 100 Room Air 04/04/17 12:35 97 17 111/87 100 Room Air 04/04/17 10:44 99.1 131 18 108/77 96 Vital Signs Date Time Temp Pulse Resp B/P Pulse Ox O2 Delivery O2 Flow Rate FiO2 04/04/17 17:13 96 15 122/87 96 Room Air 04/04/17 10:44 99.1 Exam Exam Constitutional: alert, oriented, frail Head: atraumatic, normocephalic Neck: non-tender, supple Respiratory: clear to auscultation Cardiovascular: regular rate and rhythm Gastrointestinal: S/ suprapubic and bilateral inguinal pain just lateral to the suprapubic area without guarding or rebound / non distended / +BS : Nephrostomy tube with slightly pinkish urine Extremities: no edema, good radial pulses Vaginal exam: Labs Result Diagram: 04/04/17 1310 04/04/17 1720 Procedures Procedures Laboratory Tests Test 04/04/17 11:20 04/04/17 12:11 04/04/17 13:10 04/04/17 17:20 White Blood Count 9.410^3/ul Red Blood Count 4.3710^6/ul Hemoglobin 12.4g/dl 11.5g/dl Hematocrit 38.3% 35.8% Mean Corpuscular Volume 87.6fl Mean Corpuscular Hemoglobin 28.4pg Mean Corpuscular Hemoglobin Concent 32.4g/dl Red Cell Distribution Width 17.0% Platelet Count 65542^3/UL Mean Platelet Volume 8.8fl Neutrophils % 93.0% Lymphocytes % 3.6% Monocytes % 2.5% Eosinophils % 0.4% Basophils % 0.1% Nucleated Red Blood Cells % 0.0/100WBC Neutrophils # 8.810^3/ul Lymphocytes # 0.310^3/ul Monocytes # 0.210^3/ul Eosinophils # 0.010^3/ul Basophils # 0.010^3/ul Nucleated Red Blood Cells # 0.010^3/ul Urine Color LT. YELLOW Urine Clarity SLIGHTLY CLOUDY Urine pH 6.0 Urine Specific [place] 1.015 Urine Ketones 2+ Urine Nitrite NEGATIVE Urine Bilirubin NEGATIVE Urine Urobilinogen 0.2 E.U./dL Urine Leukocyte Esterase 1+ Urine Microscopic RBC 25-50/HPF Urine Microscopic WBC 5-10/HPF Urine Squamous Epithelial Cells RARE/HPF Urine Bacteria FEW/HPF Urine Hemoglobin 3+ Urine Glucose NEGATIVE% Urine Total Protein 1+ Sodium Level 142mmol/L Potassium Level 3.8mmol/L Chloride Level 100mmol/L Carbon Dioxide Level 24mmol/L Anion Gap 22 Blood Urea Nitrogen 18mg/dl Creatinine 1.00mg/dl Glucose Level 86mg/dl Calcium Level 10.0mg/dl Current Medications Medications (Trade) Dose Ordered Sig/Eulalio Route PRN Reason Start Time Stop Time Status Last Admin Dose Admin Sodium Chloride (NS) 1,000 ml @ 1,000 mls/hr Q1H STAT IV 04/04/17 10:55 04/04/17 11:54 DC 04/04/17 11:25 1,000 MLS/HR Morphine Sulfate (morphine) 2 mg ONCE ONCE IV 04/04/17 11:00 04/04/17 11:01 DC 04/04/17 11:24 2 MG Morphine Sulfate 2 mg 2 mg ONCE STAT IV 04/04/17 11:14 04/04/17 11:15 DC 04/04/17 11:58 2 MG Cefepime HCl (Maxipime 1gm/50 ml (Pmx)) 50 ml @ 100 mls/hr ONCE ONCE IVPB 04/04/17 14:00 04/04/17 14:29 DC 04/04/17 14:07 100 MLS/HR Hydromorphone HCl (Dilaudid) 1 mg ONCE STAT IV 04/04/17 14:28 04/04/17 14:29 DC 04/04/17 14:32 1 MG Hydromorphone HCl (Dilaudid) 1 mg ONCE STAT IV 04/04/17 16:54 04/04/17 16:57 DC 04/04/17 17:10 1 MG Ondansetron HCl (Zofran Inj) 4 mg BRIDGE ORDER PRN IV NAUSEA AND/OR VOMITING 04/04/17 19:00 04/05/17 18:59 Acetaminophen (Tylenol Tab) 650 mg ER BRIDGE PRN PO MILD PAIN/FEVER 04/04/17 19:00 04/05/17 18:59 PROCEDURE: US Pelvis. CLINICAL INDICATION: Postmenopausal vaginal bleeding. TECHNIQUE: The pelvis was evaluated with transabdominal and transvaginal sonography in the axial and sagittal planes. COMPARISON: No prior study is available for comparison. FINDINGS: The uterus measures 7.4 x 3.2 x 7.7 cm. There is a calcified anterior right fibroid measuring 4.6 x 4.0 cm. The endometrium and ovaries are not visualized. There is no other pelvic mass or free fluid. IMPRESSION: 1. Calcified fibroid in the uterus measuring 4.6 x 4.0 cm. 2. Endometrium and ovaries not visualized. 3. Otherwise unremarkable study. RPTAT: QQ .Carlos Rogers MD, Date Time Electronically viewed and signed by .Carlos Rogers MD, on 04/04/2017 12:38 .R/ CC: JERI KAM BOLATITO M. Apr 04, 2017 18:57
[2017-04-04 19:55] VITALS: PULSE 99; TEMP 99.3
[2017-04-04 20:37] VITALS: BP 133/89; RESP 20
[2017-04-04] MEDS: FAMOTIDINE 20 MG TAB PO SCH (21:12)
[2017-04-04] MEDS: DOCUSATE SODIUM 100 MG CAP PO SCH (21:12)
[2017-04-04] MEDS: morphine (ER) 15 MG TAB PO SCH (21:13)
[2017-04-04] MEDS: SOD CHLORIDE 0.45% 1,000 ML IV SCH (21:24)
[2017-04-04] MEDS: CEFTRIAXONE 1 GM/50 ML (PMX) 50 ML IVPB SCH (21:25)
[2017-04-04] MEDS: HYDROmorphONE 1 MG/ML SYG IV PRN (23:05)
[2017-04-04 23:08] VITALS: Ht 154.9 cm; Wt 52.3 kg
[2017-04-05] MEDS: HYDROCODONE/APAP (7.5/325) TAB PO PRN ×3 (00:06→18:34)
[2017-04-05] MEDS: HYDROmorphONE 1 MG/ML SYG IV PRN ×5 (05:10→22:31)
[2017-04-05 05:39] LABS: ADD SCAN DIFF NO
[2017-04-05 05:46] LABS: ABNORMAL IP MESSAGE 1; EOSINOPHILS # 0.1 10^3/ul (0.0-0.5); EOSINOPHILS % 0.7 % (0.0-7.0); HEMATOCRIT 33.4 % (37.0-47.0); HEMOGLOBIN 10.5 g/dl (12.0-16.0); LYMPHOCYTES # 0.4 10^3/ul (0.8-2.9); LYMPHOCYTES % 4.3 % (15.0-51.0); MEAN CORPUSCULAR HEMOGLOBIN 27.7 pg (29.0-33.0); MEAN CORPUSCULAR HGB CONC 31.4 g/dl (32.0-37.0); MEAN CORPUSCULAR VOLUME 88.1 fl (82.0-101.0); MEAN PLATELET VOLUME 9.1 fl (7.4-10.4); MONOCYTE # 0.3 10^3/ul (0.3-0.9); MONOCYTES % 3.2 % (0.0-11.0); NEUTROPHIL # 8.2 10^3/ul (1.6-7.5); NEUTROPHILS % 91.4 % (39.0-77.0); PLATELET COUNT 227 10^3/UL (140-415); RED BLOOD COUNT 3.79 10^6/ul (4.20-5.40); RED CELL DISTRIBUTION WIDTH 17.2 % (11.5-14.5)
[2017-04-05 06:02] LABS: CALCIUM 9.4 mg/dl (8.4-10.2); CREATININE 0.86 mg/dl (0.44-1.00); MAGNESIUM 1.7 mg/dl (1.7-2.5); POTASSIUM 3.4 mmol/L (3.5-5.1)
[2017-04-05 06:10] LABS: ALBUMIN 3.6 g/dl (3.3-4.9); BILIRUBIN,INDIRECT 0.2 mg/dl (0-1.1); BILIRUBIN,TOTAL 0.2 mg/dl (0.2-1.3); TOTAL PROTEIN 6.6 g/dl (6.1-8.1)
[2017-04-05 08:46] VITALS: BP 114/65; RESP 18
[2017-04-05] MEDS: DOCUSATE SODIUM 100 MG CAP PO SCH ×2 (08:55→20:21)
[2017-04-05] MEDS: POLYETHYLENE GLYCOL 17 GM PACKET PO SCH (08:55)
[2017-04-05] MEDS: morphine (ER) 15 MG TAB PO SCH ×2 (08:55→20:21)
[2017-04-05] MEDS: FAMOTIDINE 20 MG TAB PO SCH ×2 (08:55→20:21)
--- NOTE | 2017-04-05 10:49 | PN ---
Date/Time of Note Date/Time of Note DATE: 04/05/17 TIME: 10:48 Assessment/Plan VTE Prophylaxis VTE Prophylaxis Intervention: SCD's Lines/Catheters IV Catheter Type (from Nrsg): Peripheral IV Urinary Cath still in place: No Assessment/Plan Assessment/Plan 56 yo F with a hx of cervical cancer who presents with intractable pain and vaginal bleeding 1. Cancer associated pain: ER morphine added yesterday, ensure good bowel regimen to avoid OIC 2. Intermittent vaginal bleeding: Pelvic US is unremarkable , Hold Xarelto for now, if no further episodes, patient may f/u with her doctors at [facility] for continued cancer treatment 3. Tobacco abuse: s/p cessation counselling 4. S/p nephrostomy: tubes seem to be working fine, monitor Further intervention per clinical course Prophylaxis: Scds/ pepcid consider contacting cancer team at [facility] in AM re DVT treatment options (?IVC filter) Subjective 24 Hr Interval Summary Free Text/Dictation Pain control suboptimal Exam/Review of Systems Vital Signs Vitals Vital Signs Date Time Temp Pulse Resp B/P Pulse Ox O2 Delivery O2 Flow Rate FiO2 04/05/17 08:46 98.1 108 18 114/65 97 04/04/17 19:55 Room Air Intake and Output 04/04/17 04/04/17 04/05/17 15:00 23:00 07:00 Intake Total 50 ml 975 ml Output Total 1200 ml Balance 50 ml -225 ml Exam laying on side no mrg lungs clear abd soft no rashes hgb 10s Results Result Diagram: 04/05/17 0520 04/05/17 0520 Results 24 hrs Laboratory Tests Test 04/04/17 11:20 04/04/17 12:11 04/04/17 13:10 04/04/17 17:20 White Blood Count 9.4 # Red Blood Count 4.37 # Hemoglobin 12.4 # 11.5 L Hematocrit 38.3 # 35.8 L Mean Corpuscular Volume 87.6 Mean Corpuscular Hemoglobin 28.4 L Mean Corpuscular Hemoglobin Concent 32.4 Red Cell Distribution Width 17.0 H Platelet Count 280 Mean Platelet Volume 8.8 Neutrophils % 93.0 H Lymphocytes % 3.6 L Monocytes % 2.5 Eosinophils % 0.4 Basophils % 0.1 Nucleated Red Blood Cells % 0.0 Neutrophils # 8.8 H Lymphocytes # 0.3 L Monocytes # 0.2 L Eosinophils # 0.0 Basophils # 0.0 Nucleated Red Blood Cells # 0.0 Urine Color LT. YELLOW Urine Clarity SLIGHTLY CLOUDY Urine pH 6.0 Urine Specific [place] 1.015 Urine Ketones 2+ Urine Nitrite NEGATIVE Urine Bilirubin NEGATIVE Urine Urobilinogen 0.2 E.U./dL Urine Leukocyte Esterase 1+ H Urine Microscopic RBC 25-50 Urine Microscopic WBC 5-10 Urine Squamous Epithelial Cells RARE Urine Bacteria FEW A Urine Hemoglobin 3+ H Urine Glucose NEGATIVE Urine Total Protein 1+ H Sodium Level 142 Potassium Level 3.8 Chloride Level 100 Carbon Dioxide Level 24 Anion Gap 22 H Blood Urea Nitrogen 18 Creatinine 1.00 Glucose Level 86 Calcium Level 10.0 Test 04/05/17 05:20 White Blood Count 9.0 Red Blood Count 3.79 L Hemoglobin 10.5 L Hematocrit 33.4 L Mean Corpuscular Volume 88.1 Mean Corpuscular Hemoglobin 27.7 L Mean Corpuscular Hemoglobin Concent 31.4 L Red Cell Distribution Width 17.2 H Platelet Count 227 Mean Platelet Volume 9.1 Neutrophils % 91.4 H Lymphocytes % 4.3 L Monocytes % 3.2 Eosinophils % 0.7 Basophils % 0.0 Nucleated Red Blood Cells % 0.0 Neutrophils # 8.2 H Lymphocytes # 0.4 L Monocytes # 0.3 Eosinophils # 0.1 Basophils # 0.0 Nucleated Red Blood Cells # 0.0 Sodium Level 140 Potassium Level 3.4 L Chloride Level 103 Carbon Dioxide Level 24 Anion Gap 16 Blood Urea Nitrogen 12 Creatinine 0.86 Glucose Level 83 Calcium Level 9.4 Magnesium Level 1.7 Total Bilirubin 0.2 Direct Bilirubin 0.00 Indirect Bilirubin 0.2 Aspartate Amino Transf (AST/SGOT) 32 Alanine Aminotransferase (ALT/SGPT) 32 Alkaline Phosphatase 108 Total Protein 6.6 Albumin 3.6 Medications Medications Current Medications Morphine Sulfate 15 mg 15 mg BID PO Last administered on 04/05/17 08:55; Admin Dose 15 MG; Start 04/04/17 at 21:00 Ceftriaxone Sodium (Rocephin) 50 ml @ 100 mls/hr Q24H IVPB Last administered on 04/04/17 21:25; Admin Dose 100 MLS/HR; Start 04/04/17 at 21:00 Polyethylene Glycol (Miralax) 17 gm DAILY PO Last administered on 7/16/17at 08: 55; Admin Dose 17 GM; Start 04/05/17 at 09:00 Docusate Sodium (Colace) 100 mg BID PO Last administered on 04/05/17 08:55; Admin Dose 100 MG; Start 04/04/17 at 21:00 Ondansetron HCl (Zofran Inj) 4 mg Q6H PRN IV NAUSEA AND/OR VOMITING Last administered on 04/05/17 00:06; Admin Dose 4 MG; Start 04/04/17 at 21:00 Famotidine (Pepcid) 20 mg BID PO Last administered on 04/05/17 08:55; Admin Dose 20 MG; Start 04/04/17 at 21:00 Acetaminophen/ Hydrocodone Bitart (Moro (7.5-325)) 1 tab Q6H PRN PO pain Last administered on 04/05/17 07:33; Admin Dose 1 TAB; Start 04/04/17 at 21:00 Hydromorphone HCl 0.5 mg 0.5 mg Q4H PRN IV PAIN Last administered on 04/05/17 08:57; Admin Dose 0.5 MG; Start 04/04/17 at 21:00 Sodium Chloride (1/2 NS) 1,000 ml @ 50 mls/hr Q20H IV Last administered on 21:24; Admin Dose 50 MLS/HR; Start 04/04/17 at 21:00 RADHA THOMPSON MD Apr 05, 2017 10:49
[2017-04-05] MEDS: SOD CHLORIDE 0.45% 1,000 ML IV SCH (17:19)
[2017-04-05 19:05] VITALS: BP 121/74; RESP 16
[2017-04-05] MEDS: CEFTRIAXONE 1 GM/50 ML (PMX) 50 ML IVPB SCH (20:21)
[2017-04-06] MEDS: HYDROCODONE/APAP (7.5/325) TAB PO PRN ×2 (03:41→09:21)
[2017-04-06 05:20] LABS: ADD SCAN DIFF NO
[2017-04-06 05:27] LABS: ABNORMAL IP MESSAGE 1; BASOPHILS % 0.1 % (0.0-2.0); EOSINOPHILS # 0.1 10^3/ul (0.0-0.5); EOSINOPHILS % 1.5 % (0.0-7.0); HEMATOCRIT 30.7 % (37.0-47.0); LYMPHOCYTES # 0.3 10^3/ul (0.8-2.9); LYMPHOCYTES % 3.8 % (15.0-51.0); MEAN CORPUSCULAR HEMOGLOBIN 28.5 pg (29.0-33.0); MEAN CORPUSCULAR HGB CONC 32.6 g/dl (32.0-37.0); MEAN CORPUSCULAR VOLUME 87.5 fl (82.0-101.0); MEAN PLATELET VOLUME 9.5 fl (7.4-10.4); MONOCYTE # 0.2 10^3/ul (0.3-0.9); MONOCYTES % 1.9 % (0.0-11.0); NEUTROPHIL # 8.2 10^3/ul (1.6-7.5); NEUTROPHILS % 92.1 % (39.0-77.0); PLATELET COUNT 208 10^3/UL (140-415); RED BLOOD COUNT 3.51 10^6/ul (4.20-5.40); RED CELL DISTRIBUTION WIDTH 16.5 % (11.5-14.5); WHITE BLOOD COUNT 8.9 10^3/ul (4.8-10.8)
[2017-04-06] MEDS: HYDROmorphONE 1 MG/ML SYG IV PRN ×4 (06:00→23:05)
[2017-04-06 06:07] LABS: CREATININE 0.84 mg/dl (0.44-1.00); POTASSIUM 3.4 mmol/L (3.5-5.1)
[2017-04-06 08:02] VITALS: BP 106/71; RESP 16
[2017-04-06] MEDS: POLYETHYLENE GLYCOL 17 GM PACKET PO SCH (09:00)
[2017-04-06] MEDS: DOCUSATE SODIUM 100 MG CAP PO SCH ×2 (09:15→20:50)
[2017-04-06] MEDS: FAMOTIDINE 20 MG TAB PO SCH ×2 (09:15→20:50)
[2017-04-06] MEDS: morphine (ER) 15 MG TAB PO SCH ×2 (09:15→20:51)
[2017-04-06] MEDS ORDERED: POTASSIUM CHLORIDE (SR) 20 MEQ TAB PO STA (13:39)
--- NOTE | 2017-04-06 13:55 | PN ---
Date/Time of Note Date/Time of Note DATE: 04/06/17 TIME: 13:51 Assessment/Plan VTE Prophylaxis VTE Prophylaxis Intervention: SCD's Lines/Catheters IV Catheter Type (from Nrsg): Peripheral IV Urinary Cath still in place: No Assessment/Plan Chief Complaint/Hosp Course Assessment/Plan: 56 yo F with a hx of cervical cancer who presents with intractable pain and vaginal bleeding 1. Cancer associated pain: ER morphine added, also on as needed Dilaudid, continue these for now, ensure good bowel regimen to avoid OIC. We will also get physical therapy eval 2. Intermittent vaginal bleeding: Pelvic US is unremarkable. Again, holding Xarelto for now, if no further episodes, patient may f/u with her doctors at [facility] for continued cancer treatment (her next appointment is in April) 3. Tobacco abuse: s/p cessation counselling 4. S/p nephrostomy: tubes seem to be working fine, monitor Further intervention per clinical course Prophylaxis: Scds/ pepcid consider contacting cancer team at [facility] in AM re DVT treatment options (?IVC filter) versus hematology oncology consult Problems: Subjective 24 Hr Interval Summary Free Text/Dictation Patient still having some pain symptoms. Exam/Review of Systems Vital Signs Vitals Vital Signs Date Time Temp Pulse Resp B/P Pulse Ox O2 Delivery O2 Flow Rate FiO2 04/06/17 08:02 98.0 95 16 106/71 97 04/04/17 19:55 Room Air Intake and Output 04/05/17 04/05/17 04/06/17 15:00 23:00 07:00 Intake Total 1300 ml 1100 ml Output Total 900 ml Balance 400 ml 1100 ml Exam laying on side, in mild distress, answering question Pupils equal round reactive to light extraocular muscles are intact no mrg lungs clear abd soft no rashes Bilateral nephrostomy tubes intact Results Result Diagram: 04/06/17 0443 04/06/17 0443 Results 24 hrs Laboratory Tests Test 04/06/17 04:43 White Blood Count 8.9 Red Blood Count 3.51 L Hemoglobin 10.0 L Hematocrit 30.7 L Mean Corpuscular Volume 87.5 Mean Corpuscular Hemoglobin 28.5 L Mean Corpuscular Hemoglobin Concent 32.6 Red Cell Distribution Width 16.5 H Platelet Count 208 Mean Platelet Volume 9.5 Neutrophils % 92.1 H Lymphocytes % 3.8 L Monocytes % 1.9 Eosinophils % 1.5 Basophils % 0.1 Nucleated Red Blood Cells % 0.0 Neutrophils # 8.2 H Lymphocytes # 0.3 L Monocytes # 0.2 L Eosinophils # 0.1 Basophils # 0.0 Nucleated Red Blood Cells # 0.0 Sodium Level 139 Potassium Level 3.4 L Chloride Level 100 Carbon Dioxide Level 27 Anion Gap 15 Blood Urea Nitrogen 12 Creatinine 0.84 Glucose Level 89 Calcium Level 9.0 Medications Medications Current Medications Morphine Sulfate 15 mg 15 mg BID PO Last administered on 04/06/17 09:15; Admin Dose 15 MG; Start 04/04/17 at 21:00 Ceftriaxone Sodium (Rocephin) 50 ml @ 100 mls/hr Q24H IVPB Last administered on 04/05/17 20:21; Admin Dose 100 MLS/HR; Start 04/04/17 at 21:00 Polyethylene Glycol (Miralax) 17 gm DAILY PO Last administered on 04/05/17 08: 55; Admin Dose 17 GM; Start 04/05/17 at 09:00 Docusate Sodium (Colace) 100 mg BID PO Last administered on 04/06/17 09:15; Admin Dose 100 MG; Start 04/04/17 at 21:00 Ondansetron HCl (Zofran Inj) 4 mg Q6H PRN IV NAUSEA AND/OR VOMITING Last administered on 04/05/17 00:06; Admin Dose 4 MG; Start 04/04/17 at 21:00 Famotidine (Pepcid) 20 mg BID PO Last administered on 04/06/17 09:15; Admin Dose 20 MG; Start 04/04/17 at 21:00 Acetaminophen/ Hydrocodone Bitart ([place] (7.5-325)) 1 tab Q6H PRN PO pain Last administered on 04/06/17 09:21; Admin Dose 1 TAB; Start 04/04/17 at 21:00 Hydromorphone HCl 0.5 mg 0.5 mg Q4H PRN IV PAIN Last administered on 04/06/17 06:00; Admin Dose 0.5 MG; Start 04/04/17 at 21:00 Sodium Chloride (1/2 NS) 1,000 ml @ 50 mls/hr Q20H IV Last administered on 17:19; Admin Dose 50 MLS/HR; Start 04/04/17 at 21:00 JANNETH HO Apr 06, 2017 13:55
[2017-04-06] MEDS ORDERED: HYDROmorphONE 1 MG/ML SYG IV PRN (17:00)
[2017-04-06 19:01] VITALS: BP 107/65; RESP 18
[2017-04-06] MEDS: CEFTRIAXONE 1 GM/50 ML (PMX) 50 ML IVPB SCH (20:51)
[2017-04-07 05:36] LABS: ADD SCAN DIFF NO
[2017-04-07 06:17] LABS: MAGNESIUM 1.4 mg/dl (1.7-2.5); PHOSPHORUS 3.1 mg/dl (2.5-4.9)
[2017-04-07 06:19] LABS: CALCIUM 9.6 mg/dl (8.4-10.2); CREATININE 0.8 mg/dl (0.44-1.00); POTASSIUM 4.3 mmol/L (3.5-5.1)
[2017-04-07] MEDS: HYDROmorphONE 1 MG/ML SYG IV PRN ×2 (06:30→12:38)
[2017-04-07 06:50] LABS: ABNORMAL IP MESSAGE 1; BASOPHILS % 0.1 % (0.0-2.0); EOSINOPHILS # 0.1 10^3/ul (0.0-0.5); EOSINOPHILS % 1.8 % (0.0-7.0); HEMATOCRIT 32.8 % (37.0-47.0); HEMOGLOBIN 10.8 g/dl (12.0-16.0); LYMPHOCYTES # 0.3 10^3/ul (0.8-2.9); LYMPHOCYTES % 3.6 % (15.0-51.0); MEAN CORPUSCULAR HEMOGLOBIN 28.8 pg (29.0-33.0); MEAN CORPUSCULAR HGB CONC 32.9 g/dl (32.0-37.0); MEAN CORPUSCULAR VOLUME 87.5 fl (82.0-101.0); MONOCYTE # 0.2 10^3/ul (0.3-0.9); MONOCYTES % 1.9 % (0.0-11.0); NEUTROPHIL # 7.2 10^3/ul (1.6-7.5); NEUTROPHILS % 91.7 % (39.0-77.0); NUCLEATED RED BLOOD CELLS% 0.3 /100WBC (0.0-0.0); PLATELET COUNT 207 10^3/UL (140-415); RED BLOOD COUNT 3.75 10^6/ul (4.20-5.40); RED CELL DISTRIBUTION WIDTH 16.3 % (11.5-14.5); WHITE BLOOD COUNT 7.9 10^3/ul (4.8-10.8)
[2017-04-07 08:00] VITALS: BP 131/61; RESP 12
[2017-04-07] MEDS: morphine (ER) 15 MG TAB PO SCH (08:50)
[2017-04-07] MEDS: DOCUSATE SODIUM 100 MG CAP PO SCH (08:50)
[2017-04-07] MEDS: FAMOTIDINE 20 MG TAB PO SCH (08:50)
[2017-04-07] MEDS: HYDROCODONE/APAP (7.5/325) TAB PO PRN ×2 (08:52→15:48)
[2017-04-07] MEDS: POLYETHYLENE GLYCOL 17 GM PACKET PO SCH (08:53)
--- NOTE | 2017-04-07 11:40 | PDOCDIS ---
Discharge Instructions CONDITION Patient Condition: Stable HOME CARE INSTRUCTIONS: Diet Instructions: Regular ACTIVITY: Activity Restrictions: Slowly Increase Activity Rest between Activity Avoid heavy lifting Do not Drive Do not operate Machinery Do not operate Power Tool Avoid Heavy Housework Bathing Restrictions: Shower FOLLOW UP/APPOINTMENTS Follow-up Plan Please take your medicines as prescribed, follow up with your doctors at [facility] when your next appointment is scheduled. JANNETH HO Apr 07, 2017 11:40
--- NOTE | 2017-04-07 11:50 | DS ---
Date/Time of Note Date/Time of Note DATE: 04/07/17 TIME: 11:45 Discharge Summary Admission/Discharge Info Admit Date/Time Apr 04, 2017 at 18:42 Discharge Date/Time Discharge Diagnosis 1. Cancer associated pain-improved with current pain medication 2. Intermittent vaginal bleeding: Resolved now .pelvic US is unremarkable. 3. Tobacco abuse: s/p cessation counselling 4. S/p nephrostomy: tubes seem to be working fine, monitor 5. cervical cancer -on chemotherapy at [facility] 6. History of DVT: On Xarelto Patient Condition: Stable Hospital Course 56-year-old female with a history of cervical cancer who comes in with complaints of abdominal pain and vaginal bleeding. Vaginal bleeding was not profuse, and patient has just had spotting before admission per she does have a history of cervical cancer and she is on chemotherapy at [facility]. She has had CVA abdominal pain and she has been taking Percocet without significant relief. She is also concerned that she might have a urinary tract infection Radha because she has had multiple in the past. She takes Xarelto for history of a DVT. She has not had any fever, she denies chest pain shortness of breath or palpitations. She has been generally weak but no bowel episodes, she has no focal deficits. She has a caregiver who usually takes around in a wheelchair. Patient was admitted to medical surgical floor, her Xarelto was initially withheld. She had no more episodes of any significant vaginal bleeding. She worked with physical therapy, continue pain control medications as well. Over the course of her hospital stay her pain symptoms improved, she was able to ambulate with assistance, tolerated p.o. diet. Her bilateral nephrostomy tubes appear to be working well, and the plan is to discharge her home today with home health physical therapy and in improved condition. She will follow up with [facility] clinic in the next month as well. She will also continue antibiotics for another 5-7 days to complete simple UTI treatment. Please see discharge medication list on this chart for full list of discharge medications. Home Meds Active Scripts Levofloxacin* (Levaquin*) 750 Mg Tablet, 750 MG PO DAILY@06 for 14 Days, TAB Prov:AR BARKER MD 03/11/17 Reported Medications Ondansetron Hcl* (Ondansetron Hcl*) 4 Mg Tablet, 4 MG PO Q8 for NAUSEA AND/OR VOMITING, TAB 03/04/17 Dronabinol* (Dronabinol*) 2.5 Mg Capsule, 2.5 MG PO BID, CAP 03/04/17 Hydrocodone/Acetaminophen ([place] 10-325 Tablet) 1 Each Tablet, 1 EACH PO, TAB 03/04/17 Sodium Polystyrene Sulfonate* (Kayexalate*) 15 Gm/60 Ml Susp, 30 GM PO, ML 03/04/17 Sennosides* (Senna Lax*) 8.6 Mg Tablet, 1 TAB PO QHS for CONSTIPATION, TAB 03/04/17 Rivaroxaban* (Xarelto*) 20 Mg Tablet, 20 MG PO WITH DINNER, TAB 03/04/17 Megestrol Acetate* (Megace*) 400 Mg/10 Ml Oral.susp, 800 MG PO DAILY, ML 03/04/17 Magnesium Oxide* (Mag-Oxide*) 400 Mg Tablet, 400 MG PO TID, TAB 03/04/17 Hydrochlorothiazide* (Hydrochlorothiazide*) 25 Mg Tab, 25 MG PO BID, #60 TAB 03/04/17 Furosemide* (Furosemide*) 40 Mg Tablet, 40 MG PO BID, TAB 03/04/17 Famotidine* (Famotidine*) 20 Mg Tablet, 20 MG PO BID, #60 TAB 03/04/17 Docusate Sodium* (Docusate Sodium*) 100 Mg Capsule, 100 MG PO BID, #60 CAP 03/04/17 Discontinued Scripts Amoxicillin* (Amoxicillin*) 500 Mg Cap, 500 MG PO Q8 for 14 Days, CAP Prov:AR BARKER MD 03/11/17 Primary Care Provider Fransico García Time spent on discharge: > 30 minutes Pending Labs Laboratory Tests Test 04/07/17 04:48 White Blood Count 7.910^3/ul (4.8-10.8) Red Blood Count 3.7510^6/ul (4.20-5.40) Hemoglobin 10.8g/dl (12.0-16.0) Hematocrit 32.8% (37.0-47.0) Mean Corpuscular Volume 87.5fl (82.0-101.0) Mean Corpuscular Hemoglobin 28.8pg (29.0-33.0) Mean Corpuscular Hemoglobin Concent 32.9g/dl (32.0-37.0) Red Cell Distribution Width 16.3% (11.5-14.5) Platelet Count 25094^3/UL (140-415) Mean Platelet Volume 10.0fl (7.4-10.4) Neutrophils % 91.7% (39.0-77.0) Lymphocytes % 3.6% (15.0-51.0) Monocytes % 1.9% (0.0-11.0) Eosinophils % 1.8% (0.0-7.0) Basophils % 0.1% (0.0-2.0) Nucleated Red Blood Cells % 0.3/100WBC (0.0-0.0) Neutrophils # 7.210^3/ul (1.6-7.5) Lymphocytes # 0.310^3/ul (0.8-2.9) Monocytes # 0.210^3/ul (0.3-0.9) Eosinophils # 0.110^3/ul (0.0-0.5) Basophils # 0.010^3/ul (0.0-0.1) Nucleated Red Blood Cells # 0.010^3/ul (0.0-0.0) Sodium Level 138mmol/L (135-144) Potassium Level 4.3mmol/L (3.5-5.1) Chloride Level 98mmol/L (97-110) Carbon Dioxide Level 28mmol/L (21-31) Anion Gap 16 (8-16) Blood Urea Nitrogen 8mg/dl (7-20) Creatinine 0.80mg/dl (0.44-1.00) Glucose Level 94mg/dl (70-220) Calcium Level 9.6mg/dl (8.4-10.2) Phosphorus Level 3.1mg/dl (2.5-4.9) Magnesium Level 1.4mg/dl (1.7-2.5) JANNETH HO Apr 07, 2017 11:49
[2017-04-07] MEDS ORDERED: MAGNESIUM SULFATE 3 GM in SOD CHLORIDE 0.9% 100 ML IVPB ONE (12:30)
== END 2017-04-07 18:30 | disposition home or self-care (01) | DRG 147 ==
LOC: E/R 10:43 → MS1 18:42
PROVIDERS: ADMIT Family Medicine; ATTEND Family Medicine
DX: C76.0 Malignant neoplasm of head, face and neck (principal); N12 Tubulo-interstitial nephritis, not specified as acute or chronic; N93.8 Other specified abnormal uterine and vaginal bleeding; F17.200 Nicotine dependence, unspecified, uncomplicated; Z79.899 Other long term (current) drug therapy; Z92.21 Personal history of antineoplastic chemotherapy; Z87.440 Personal history of urinary (tract) infections; Z86.718 Personal history of other venous thrombosis and embolism; Z93.6 Other artificial openings of urinary tract status
CPT/HCPCS: 36415; 76830; 76856; 80048; 80076; 81001; 83735; 84100; 85014; 85018; 85025; 86850; 86900; 86901; 87081; 87086; 96374; 96375; 96376; 97161; J0692; J0696; J1170; J2270; J2405; J3475; J7030